=== PATIENT | male | born 1940 | race Caucasian/White ===

== ENCOUNTER 2023-12-23 21:52 | Inpatient (IN) | payer MEDICARE, OTHER, SELFPAY ==
[2023-12-23 16:35] VITALS: BP 143/91
--- NOTE | 2023-12-23 16:37 | ED.GENMED ---
History of Present Illness
General
Chief Complaint: Abdominal Symptoms
Source: patient and ambulance crew
Exam Limitations: none
Time Seen by Provider: 12/23/23 16:35
History of Present Illness
History of Present Illness:
See MDM
Past History
Past History
ED Past Medical History: HTN, Seizures and Other (Glaucoma, seizure in 2016)
ED Past Surgical History: Other (cataract surgery)
Patient has exhibited threatening behavior?: No
PSI?: No
Social History
Tobacco: Non-smoker
Alcohol: None
Drug: None
Personal:
Living: with family
Employment: Retired
Phy Exam
Physical Exam
Physical Exam:
See MDM
Course
Orders/Labs/Results
Orders:
Orders
12/23/23 16:35
CT Abd/pelvis W Iv Cont Urgent
Comment:
Reason For Exam: N/V/D, general abd pain, febrile
0.9% Sodium Chloride 1000 ml [Nss] 1,000 ml IV BOLUS
Acetaminophen [Tylenol] 1,000 mg PO NOW STA
12/23/23 16:36
Electrocardiogram (*1) Urgent
Reason for Study: Abdominal Pain
EKG- Treatment ONCE
CR Chest - 2 Views Urgent
Comment:
Reason For Exam: cough, fever
12/23/23 16:42
COVID-19 Antigen Urgent
Source: Nasal Swab
CPK [Creatine Phosphokinase] Urgent
Complete Blood Count/With Diff Urgent
Comprehensive Metabolic Panel Urgent
Lactic Acid Q4H
Comment: CANCEL 2nd LACTIC ACID IF 1st LACTIC ACID IS LESS THAN 2
Lipase Urgent
Blood Culture Q30M
JAKOB Source: Blood/Venous
Specimen Description:
Influenza A+B Rapid Molecular Urgent
JAKOB Source: Nasal Swab
Specimen Description:
12/23/23 16:46
Blood Culture Q30M
JAKOB Source: Blood/Venous
Specimen Description:
12/23/23 17:05
Urinalysis Reflex To Culture Urgent
Date Specimen was Collected: 12/23/23
Time Specimen was Collected: 17:01
Urine Microscopic Reflex Cult Urgent
12/23/23 18:52
Azithromycin 500 mg/250 ml [Zithromax Infusion] 500 mg in 250 ml IV NOW
CefTRIAXone [Rocephin] 2,000 mg IV NOW STA
12/23/23 19:12
Sterile Water [Sterile Water For Injection] 20 ml .ROUTE .K-MED
Abnormal Lab Results
12/23/23 12/23/23
16:42 17:05
WBC 15.0 H 10^3/uL
(4.8-10.8)
MCV 94.5 H fL
(80.0-94.0)
MCH 31.9 H pg
(27.0-31.0)
RDW 15.0 H %
(11.5-14.5)
Abs Immat Gran (auto) 0.1 H 10^3/uL
(0-0.05)
Absolute Neuts (auto) 13.3 H 10^3/uL
(1.4-6.5)
Absolute Lymphs (auto) 0.2 L 10^3/uL
(1.2-3.4)
Absolute Monos (auto) 1.4 H 10^3/uL
(0.1-0.6)
Neutrophils % 88.7 H %
(42.2-75.2)
Lymphocytes % 1.1 L %
(20.5-51.1)
Glucose 126 H mg/dl
(70-99)
Total Bilirubin 2.2 H mg/dl
(0.2-1.3)
Creatine Kinase 34 L U/L
(55-170)
Lipase 316 H U/L
(23-300)
Urine Ketones 3+ A
(Negative)
Urine Bilirubin 1+ A
(Negative)
Leukocyte Esterase Rfl Trace A
(Negative)
Urine Bacteria (Reflex) Few A
(Negative)
12/23/23 16:42
12/23/23 16:42
Vital Signs
Initial and Last Documented VS:
Initial Vital Signs
Temp Pulse Resp BP Pulse Ox
101.7 F H 103 12 143/91 94
12/23/23 16:35 12/23/23 16:35 12/23/23 16:35 12/23/23 16:35 12/23/23 16:35
Last Documented Vital Signs
Temp Pulse Resp BP Pulse Ox
101.7 F H 107 24 143/91 94
12/23/23 16:35 12/23/23 16:45 12/23/23 16:45 12/23/23 16:38 12/23/23 16:52
MDM/Problems Addressed
Differential Diagnosis Includes:
HPI and MDM Narrative:
83-year-old male presenting by EMS for evaluation of nausea, vomiting, abdominal pain. Per EMS, patient still works outside cleaning pools. We are currently in the midst of a heat wave. EMS started IV fluids and gave Zofran for vomiting. EMS
stating that patient is febrile. Patient complaining of chills
On exam, patient does appear dry. Will start IV fluids. He has mild generalized abdominal pain without rebound. Given age and abdominal pain with fever, will obtain CT. Will also obtain viral testing, urinalysis and chest x-ray
Physical exam
General: weak and fatigued
HEENT: protecting airway. Dry mucous membranes
Neck: supple
CV: No evidence of cyanosis
Resp: No accessory muscle use. Lungs appear clear
Abd: Non-distended. Mild generalized tenderness without rebound
Extremities: No deformities
Neuro: alert
Psych: Normal affect
Skin: Warm
Problems Addressed including Acute and Chronic Conditions affecting care:
1. Fever and abdominal pain
Acuity: acute
Prognosis: stable
Details: Given age and complaint, will obtain CT to rule out infectious versus surgical pathology. Patient given Tylenol
. Will obtain chest x-ray to rule out pneumonia
Updates
CT abdomen/pelvis shows no significant intra-abdominal pathology. Does reference right lower lobe effusion which is likely from pneumonia. Chest x-ray does appear to show pneumonia. Given the fever, leukocytosis and findings, will treat as
community-acquired pneumonia with azithromycin and Rocephin
Differential Diagnosis (but not limited to): Colitis, pancreatitis, acute cholecystitis, pneumonia, viral syndrome
Testing considered: CT with oral contrast but patient is vomiting
Drug therapy (if applicable): OTC meds, please see d/c instruction regarding Rx drugs
Amount and/or Complexity of Data Reviewed
Clinical info obtained from: Patient
External data reviewed: N/A
Labs I independently reviewed (but not limited to): Leukocytosis
Radiology: The CT scan was personally and independently reviewed. In addition, official CT report reviewed.
X-ray independently reviewed: Right lower lobe pneumonia
X-ray independently reviewed: Chest x-ray concerning for right lower lobe pneumonia
Pulse Ox: not hypoxic
EKG independently reviewed: Sinus tachycardia, left axis, no STEMI
Campaign Developer: N/A
Critical Care: N/A
Risk of Complication:
Social Determinants of health: Good social support
Discussed with other providers: Hospitalist
Escalation of Care includes Admit/Obs: given age, fever and pneumonia, will start antibiotics and admit
Occasional wrong word or 'sound a like' substitutions may have occurred due to the inherent limitations of voice recognition software. Read the chart carefully and recognize, using context, where substitutions have occurred.
*Critical Care Note
Total Time (30-74mins, 75-104mins- exclusive of procedures): Not Applicable
ED Attending Note
-
Portions of this chart may have been created with voice recognition software.� Occasional wrong word or��sound alike� substitutions may have occurred due to the inherent limitations of voice recognition software.
Discharge Plan
Departure
Patient Disposition: Admit
Date of Disposition: 12/23/23
Time of Disposition: 20:06
Admit to: Med/Surg
Presentation/result/management discussed w/ accepting MD/DO: Hospitalist
Discharge Problem:
PNA (pneumonia), Heat exhaustion
Prescriptions:
No Action
dorzolamide-timolol 1 DROP drops
1 drp BOTH EYES HS
brimonidine [Alphagan P] 1 DROP drops
1 drp BOTH EYES TID
pilocarpine HCl 4 % drops
2 drp RIGHT EYE TID
pilocarpine HCl 2 % drops
3 drp BOTH EYES TID
acetaminophen 325 mg Tablet
650 mg PO Q4HPRN PRN (Reason: mild pain) Qty: 0 0RF
docusate sodium 100 mg Capsule
100 mg PO BID Qty: 0 0RF
cyanocobalamin (vitamin B-12) 1,000 mcg Tablet
1,000 mcg PO DAILY Qty: 30 0RF
multivitamin with folic acid [Tab-A-Shana] 400 mcg Tablet
1 tab PO DAILY Qty: 30 0RF
levetiracetam 500 MG tablet
500 mg PO BID Qty: 30 0RF
thiamine HCl (vitamin B1) 100 mg Tablet
100 mg PO BID Qty: 30 0RF
folic acid 1 mg Tablet
1 mg PO DAILY Qty: 30 0RF
enoxaparin 40 mg/0.4 mL Syringe
40 mg SC DAILY Qty: 8 0RF
Referrals:
Moreno Erazo DO [Family Provider] -
Interventions
Interventions:
*Risk Screen - Suicide Last Done: 12/23/23 16:52
*General Assessment Last Done: 12/23/23 16:52
*Neglect/Abuse Screening Last Done: 12/23/23 16:52
ED- Fall Risk Assessment Last Done: 12/23/23 16:52
*ED COVID-19 Vaccine History Last Done: 12/23/23 16:52
ZS-[id number]-[id number] Assessment Last Done: 12/23/23 16:52
Discharge Date and Time
Print Language: TUVALUAN
[2023-12-23 16:38] VITALS: BP 143/91
[2023-12-23 16:51] VITALS: BMI 24.7
[2023-12-23 16:58] LABS: % Basophils 0.3 % (0-2); % Eosinophils 0.5 % (0-6); % Immature Granulocytes 0.4 % (0-0.5); % Lymphocytes 1.1 % (20.5-51.1); % Neutrophils 88.7 % (42.2-75.2); Absolute Basophils 0.1 10^3/uL (0-0.2); Absolute Eosinophils 0.1 10^3/uL (0-0.7); Absolute Immature Granulocytes 0.1 10^3/uL (0-0.05); Absolute Lymphocytes 0.2 10^3/uL (1.2-3.4); Absolute Monocytes 1.4 10^3/uL (0.1-0.6); Absolute Neutrophils 13.3 10^3/uL (1.4-6.5); Hematocrit 44.4 % (39.0-52.0); Mean Corp Hgb Conc. 33.8 g/dL (33.0-37.0); Mean Corpuscular Hgb 31.9 pg (27.0-31.0); Mean Corpuscular Volume 94.5 fL (80.0-94.0); Mean Platelet Volume 10.2 fL (7.4-10.4); Nucleated Red Blood Cells % 0 % (-); Platelet Count 192 10^3/uL (130-400)
[2023-12-23 17:04] LABS: Lactic Acid 1.6 mmol/L (0.7-2.0)
[2023-12-23 17:05] LABS: COVID-19 Antigen Negative (Negative)
[2023-12-23 17:13] LABS: Urine Albumin Negative (Neg - Trace); Urine Bilirubin 1+ (Negative); Urine Character Clear (Clear); Urine Color Yellow; Urine Glucose Negative (Negative); Urine Ketone 3+ (Negative); Urine Leukocyte Trace (Negative); Urine Nitrite Negative (Negative); Urine Occult Blood Negative (Negative); Urine Specific Gravity 1.025 (<1.030); Urine Urobilinogen Negative (Neg - 1+)
[2023-12-23] MEDS: TYLENOL 1000 MG PO (17:19)
[2023-12-23 17:21] LABS: Urine Bacteria Few (Negative); Urine Mucus Many; Urine Red Blood Cell 0-2 /HPF (0-2); Urine White Cell 0-2 /HPF (0-5)
[2023-12-23] MEDS: NSS 1000 IV ×2 (17:22→22:23)
[2023-12-23 17:40] LABS: ALT (SGPT) 15 U/L (0-50); AST (SGOT) 22 U/L (17-59); Albumin 4.4 g/dl (3.5-5.0); Alkaline Phosphatase 93 U/L (38-126); Blood Urea Nitrogen 19 mg/dl (9-20); Calcium 8.9 mg/dl (8.4-10.2); Carbon Dioxide 24 mmol/L (22-30); Chloride 105 mmol/L (98-107); Creatine Phosphokinase 34 U/L (55-170); Estimated Creatinine Clearance 71 ml/min; Glucose 126 mg/dl (70-99); Lipase 316 U/L (23-300); Sodium 141 mmol/L (135-145); Total Bilirubin 2.2 mg/dl (0.2-1.3); Total Protein 7.4 g/dl (6.3-8.2); eGFR > 60.00
[2023-12-23] MEDS: ROCEPHIN 2000 MG IV (19:14)
[2023-12-23] MEDS: ZITHROMAX INFUSION 250 IV (19:14)
--- NOTE | 2023-12-23 20:41 | HPS.HSE ---
Family Physician
-
Family Physician: Moreno Erazo
Chief Complaint
-
Vomiting and Fever
History of Present Illness
Patient is an 83-year-old male past medical history of seizure disorder, and alcohol use disorder who presents with vomiting and fever. Additional history provided by emergency room staff. 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
outside in the midst of the current heat wave. Today patient developed nausea and vomiting, and associated fever. Patient denies cough or shortness of breath. He denies chest pains or palpitations. He denies abdominal pain or diarrhea.
Medical History
Past Medical History
Past Medical History: Reports Other
Additional Past Medical History:
Seizure Disorder
Alcohol Use Disorder
Glaucoma
Past Surgical History: Reports Other
Additional Past Surgical History:
Left Hip ORIF
Left Knee Surgery
Cataract Surgery
Social History
Tobacco: Former Smoker (Quit in 2004)
Alcohol: Daily (Patient reports 2-3 glasses of Vodka nightly)
Family History
Family History: Not pertinent
Allergies / Home Medications
Allergies reflects when Allergies were last updated in [facility].
Home Medications with original date entered in [facility]
Allergy/Medication List:
Allergies
Allergy/AdvReac Type Severity Reaction Status Date / Time
No Known Allergies Allergy Verified 06/26/22 20:29
Home Medications
brimonidine 0.15 % eye drops (Alphagan P) 1 drp BOTH EYES TID Eye condition 04/19/17
dorzolamide 22.3 mg-timolol 6.8 mg/mL eye drops 1 drp BOTH EYES HS Eye condition 04/19/17
pilocarpine HCl 2 % eye drops 3 drp BOTH EYES TID Eye condition 06/26/22
pilocarpine HCl 4 % eye drops 2 drp RIGHT EYE TID Eye condition 06/26/22
acetaminophen 325 mg tablet 650 mg (2 x 325 mg) PO Q4HPRN PRN mild pain #0 tabs 06/29/22
docusate sodium 100 mg capsule 100 mg PO BID #0 caps 06/29/22
cyanocobalamin (vitamin B-12) 1,000 mcg tablet 1,000 mcg PO DAILY #30 tabs 07/12/22
multivitamin with folic acid 400 mcg tablet (Tab-A-Shana) 1 tab PO DAILY #30 tabs 07/12/22
folic acid 1 mg tablet 1 mg PO DAILY #30 tabs 07/13/22
levetiracetam 500 mg tablet 500 mg PO BID Neurological Condition #30 tabs 07/13/22
thiamine HCl (vitamin B1) 100 mg tablet 100 mg PO BID #30 tabs 07/13/22
Review of Systems
-
A 12 point ROS was completed and negative except as noted: Yes
Constitutional: Reports Fever
Respiratory: Denies Cough or Trouble Breathing
Cardiac: Denies Chest Pain or Palpitations
Abdomen/GI: Reports Vomiting and Diarrhea
Physical Exam
Vital Signs
Vital Signs
Temp Pulse Resp BP Pulse Ox
101.7 F H 97 17 143/91 94
12/23/23 16:35 12/23/23 20:30 12/23/23 20:30 12/23/23 16:38 12/23/23 20:30
Physical Exam
General: Comfortable and Conversant
HEENT: Anicteric and Moist mucous membranes
Respiratory: Rhonchi (Diffuse more prominent in right lower lobe region) and Non Labored Respirations
Cardiac: S1/S2 and Regular Rhythm
GI: Soft and Non Tender
Musculoskeletal: No Clubbing, No Cyanosis and No Edema
Skin: Warm and Dry
Neuro: Awake, Alert, Oriented and Nonfocal/grossly intact
Psych: Calm
Laboratory Results
-
12/23/23 16:42
12/23/23 16:42
Laboratory Results
Lactic Acid Cancelled 12/23/23 20:45
Total Bilirubin 2.2 mg/dl (0.2-1.3) H 12/23/23 16:42
AST 22 U/L (17-59) 12/23/23 16:42
ALT 15 U/L (0-50) 12/23/23 16:42
Alkaline Phosphatase 93 U/L (38-126) 12/23/23 16:42
Lipase 316 U/L (23-300) H 12/23/23 16:42
Data Reviewed
-
Diagnostic Radiology: Report Reviewed by me
CT Scan: Report Reviewed by me
Lab Data: Labs Reviewed by me
Impression/Plan
-
SIRS secondary to Heat Exhaustion complicated by Aspiration Pneumonia
-Continue IVFs
-Continue Rocephin and Doxycycline
-Monitor temperature closely
Seizure Disorder
-Continue Keppra
Alcohol Use Disorder
-Continue thiamine and folic acid
-Continue alcohol withdrawal protocol
DVT proph: Lovenox
Code Status: Full Code
--- NOTE | 2023-12-23 20:45 | W.PN.UPDATE ---
Update Note
Progress Note Update
This note serves as an addendum to the H&P by route delivery service driver KIKA Patrizia GEE
HPI
83M HX Sz, ETOH use disorder, HTN, daily ETOH/ 16 oz Vodka daily with dinner seen at ER for evalauation of acute fever, acute vomiting today. dened hemetemis and meklena. Reports subacute non bloody loose BMs for 4 weeks .
He works outdoor for pool maintenance
Denied feverish, cough and chills.
Denied myalgia and arthralgia,
VSS: T 101.7 tachycardia normotensive POx 94
PE
Gen: non toxic , conversant
HEENT: moist OM
Neck: supple
Lungs: symmetric AE, Rt base ? bronchial BS
Cor: RRR ST S1 S2
Abdomen: soft BS
ACCOUNTING OFFICE MANAGER: NFND
MS: no edema
Psych: appropiate
Data
Leucocytosis , unremarkable BMP , TB 2.2 and CK 34, lipase 316Unremarkable UA
NEG Covid
CXR:
Small loculated right pleural effusion with associated right lower lobe airspace disease/pneumonia.
CT AP W Iv Cont
1. No significant acute abnormality identified in the abdomen or pelvis, as described above.
2. Cholelithiasis.
3. Small right pleural effusion, likely partially loculated and adjacent right lower lobe pleural-based consolidation which may reflect combination of rounded atelectasis and pneumonia.
4. Small hiatal hernia and evidence for gastroesophageal reflux.
ASSESSMENT & PLAN
Pending Rx reconciliation
Suspect exertional heat illness - heat exhaustion with vomiting: Unremarkable CKS, nl RFTs, no hematuria
Current SIRS picture is likely due to heat exhaustion
CXR suggest Right lower lobe airspace disease/pneumonia is possible due to aspiration
Leucocytosis
ETOH use disorder: at risk for ETOH WD
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
- IV NS 100/H
- Empiric IV CFTX and PO doxy while pending PCT
- CIWA protocol
- cont Keppra
- Trend CBC and CMP daily
DVT Px: LMWH
Code: Fulll
IP TLM
[2023-12-23 21:00] VITALS: BP 97/62
[2023-12-23 21:25] LABS: Procalcitonin 1.39 ng/ml (0.0-0.25)
--- NOTE | 2023-12-23 22:15 | PTCARENOTE ---
Patient arrived to unit accompanied by ED PCT, ambulated to bathroom and bed with x1 assist. RW given for furniture grabbing. Nursing assessment completed and as documented. Patient oriented to room/facility, instructed use of call guevara and within
reach, VSS, continue with current care plan.
[2023-12-23] MEDS: KEPPRA 500 MG PO (22:23)
[2023-12-23 22:34] VITALS: BMI 24.4
[2023-12-23 22:37] VITALS: BP 137/75; BMI 24.4
[2023-12-23 23:17] VITALS: BP 102/76
[2023-12-24] VITALS (9 sets, daily range): BP systolic 123–141; BP diastolic 62–83; PULSE 98–150; O2SAT 93
--- NOTE | 2023-12-24 01:15 | PTCARENOTE ---
Patient c/o nausea, House DINING CAR SERVER notified and order placed for 4mg IV Zofran x1, see MAR for administration.
[2023-12-24] MEDS: ZOFRAN 4 MG IV (01:16)
--- NOTE | 2023-12-24 02:15 | PTCARENOTE ---
Patient vomited large amount of coffee ground emesis in room, patient felt relief of nausea following episode. Patient with loose, large, brown BM in toilet, unable to heme test. RODENT CONTROL WORKER made aware, order placed for NPO, IV protonix and GI C/S. VSS,
call guevara within reach, care ongoing.
--- NOTE | 2023-12-24 02:46 | W.PN.UPDATE ---
Update Note
Progress Note Update
pt admitted with n/v heat exhaustion
RN reports pt vomited coffee ground like emesis followed by BM that did not appear black or bloody (unable to heme test as it was in toilet).
Will make pt NPO
Add protonix gtt ad ask GI to see pt.
Pt does have hx of ETOH abuse
[2023-12-24] MEDS: PROTONIX 100 IV ×2 (03:25→13:27)
[2023-12-24] MEDS: ATIVAN 1 MG PO ×3 (05:38→09:44)
[2023-12-24] MEDS: NSS (PRESERVATIVE FREE) 0.5 ML IV (06:09)
[2023-12-24] MEDS: ATIVAN 1 MG IV (06:09)
[2023-12-24] MEDS: NSS 1000 IV ×2 (07:40→19:53)
[2023-12-24] MEDS: THIAMINE INJECTION 200 MG IV ×2 (07:42→20:05)
[2023-12-24] MEDS: VIBRAMYCIN 100 MG PO ×2 (07:42→20:07)
[2023-12-24] MEDS: FOLVITE 1 MG PO (07:42)
[2023-12-24 07:45] LABS: Hematocrit 38.4 % (39.0-52.0); Mean Corp Hgb Conc. 33.9 g/dL (33.0-37.0); Mean Corpuscular Hgb 31.9 pg (27.0-31.0); Mean Corpuscular Volume 94.3 fL (80.0-94.0); Mean Platelet Volume 10.3 fL (7.4-10.4); Platelet Count 155 10^3/uL (130-400); Red Blood Cell Count 4.07 10^6/uL (4.70-6.10); Red Cell Dist. Width 15.2 % (11.5-14.5); White Blood Cell Count 9.5 10^3/uL (4.8-10.8)
--- NOTE | 2023-12-24 07:58 | CON.GI ---
Consultation
-
Date/Time Consultation Performed: 12/24/23
Performing Provider: Acosta Stokes MD
Reason for Consultation: coffee ground emesis
Medical History
Chief Complaint / HPI
Chief Complaint: fever, vomiting, diarrhea
History of Present Illness:
The patient is an 83-year-old male with past medical history as noted presents with fever and abdominal pain. He states that yesterday he started to have vomiting with associated abdominal pain which she describes as diffuse. He states that for
the past week he has been having intermittent diarrhea which has been nonbloody. He does not recall seeing any blood in his emesis, though by report had an episode of coffee-ground emesis yesterday. He denies any cough. He had a colonoscopy in
the which was unremarkable by report and usually does not have any GI symptoms and does not follow-up with a public relations assistant. He does drink alcohol daily. He denies any recent sick contacts or antibiotics.
Past Medical History
Past Medical History: Other (Seizure disorder Glaucoma Alcohol use disorder)
Past Surgical History: None
Social History
Tobacco: Non-Smoker
Alcohol: Daily
Family History
Family History: Reviewed & Not Pertinent
Allergies / Home Medications
Allergy/AdvReac Type Severity Reaction Status Date / Time
No Known Allergies Allergy Verified 06/26/22 20:29
�Medication �Instructions �Recorded
brimonidine 0.15 % eye drops 1 drp BOTH EYES TID Eye condition 04/19/17
(Alphagan P)
dorzolamide 22.3 mg-timolol 6.8 1 drp BOTH EYES HS Eye condition 04/19/17
mg/mL eye drops
pilocarpine HCl 2 % eye drops 3 drp BOTH EYES TID Eye condition 06/26/22
pilocarpine HCl 4 % eye drops 2 drp RIGHT EYE TID Eye condition 06/26/22
acetaminophen 325 mg tablet 650 mg (2 x 325 mg) PO Q4HPRN PRN 06/29/22
mild pain #0 tabs
docusate sodium 100 mg capsule 100 mg PO BID #0 caps 06/29/22
cyanocobalamin (vitamin B-12) 1,000 mcg PO DAILY #30 tabs 07/12/22
1,000 mcg tablet
multivitamin with folic acid 400 1 tab PO DAILY #30 tabs 07/12/22
mcg tablet (Tab-A-Shana)
folic acid 1 mg tablet 1 mg PO DAILY #30 tabs 07/13/22
levetiracetam 500 mg tablet 500 mg PO BID Neurological 07/13/22
Condition #30 tabs
thiamine HCl (vitamin B1) 100 mg 100 mg PO BID #30 tabs 07/13/22
tablet
Review of Systems
-
All other systems: A 12 pt ROS was Negative except as stated above in HPI
Vital Signs
Temp Pulse Resp BP Pulse Ox
98.9 F 101 21 138/82 94
12/24/23 07:55 12/24/23 07:55 12/24/23 07:55 12/24/23 07:55 12/24/23 07:55
Physical Exam
Exam
General: NAD
HEENT: MMM, anicteric, no lymphadenopathy
Heart: Regular, no murmurs
Lungs: CTA bilaterally
Abdomen: normal bowel sounds, soft, no tenderness, no rebound or guarding, no masses, bruits or ascites
Extremeties: no edema
Skin: no rashes
Results
WBC 9.5 10^3/uL (4.8-10.8) 12/24/23 07:32
Hgb 13.0 g/dL (13.0-18.0) 12/24/23 07:32
Hct 38.4 % (39.0-52.0) L 12/24/23 07:32
MCV 94.3 fL (80.0-94.0) H 12/24/23 07:32
Plt Count 155 10^3/uL (130-400) 12/24/23 07:32
Absolute Neuts (auto) 13.3 10^3/uL (1.4-6.5) H 12/23/23 16:42
Sodium 141 mmol/L (135-145) 12/23/23 16:42
Potassium 4.0 mmol/L (3.5-5.1) 12/23/23 16:42
Chloride 105 mmol/L (98-107) 12/23/23 16:42
Carbon Dioxide 24 mmol/L (22-30) 12/23/23 16:42
BUN 19 mg/dl (9-20) 12/23/23 16:42
Creatinine 0.7 mg/dL (0.7-1.3) 12/23/23 16:42
Calcium 8.9 mg/dl (8.4-10.2) 12/23/23 16:42
Total Bilirubin 2.2 mg/dl (0.2-1.3) H 12/23/23 16:42
AST 22 U/L (17-59) 12/23/23 16:42
ALT 15 U/L (0-50) 12/23/23 16:42
Alkaline Phosphatase 93 U/L (38-126) 12/23/23 16:42
Lipase 316 U/L (23-300) H 12/23/23 16:42
Diagnostic Image Results:
CT:
1. No significant acute abnormality identified in the abdomen or pelvis, as described above.
2. Cholelithiasis.
3. Small right pleural effusion, likely partially loculated and adjacent right lower lobe pleural-based consolidation which may reflect combination of rounded atelectasis and pneumonia.
4. Small hiatal hernia and evidence for gastroesophageal reflux.
CXR:
IMPRESSION:
Small loculated right pleural effusion with associated right lower lobe airspace disease/pneumonia.
Prior GI Procedures:
EGD:
Colonoscopy:
Assessment / Plan
-
1. Vomiting/coffee ground emesis/diarrhea: Initially with intermittent diarrhea over the past week, then with vomiting yesterday, more consistent with infectious gastroenteritis. CT scan was unremarkable for other significant pathology. He did
have a fever on presentation yesterday with leukocytosis, possibly more related to pneumonia given chest x-ray, now with resolved leukocytosis and remains afebrile. His abdominal exam is benign now and overall feeling better. His coffee-ground
emesis is likely either related to esophagitis or [employer] tear, without gross bleeding at first, with normal hemoglobin and no signs of significant gross bleeding. CT scan did show hiatal hernia with fluid-filled esophagus yesterday, though
no suggestion of mass or other pathology. At this point we will start clear liquid diet, continue supportive care, on antibiotics for pneumonia. If has further diarrhea we will check stool studies. Will continue PPI and observation for now though
we will hold on endoscopy pending clinical course.
-
-
Thank you for consultation and allowing me to participate in the patient's care. Please call the homemaker companion GI physician during the after hours with any questions or concerns.
[2023-12-24 08:18] LABS: ALT (SGPT) 12 U/L (0-50); AST (SGOT) 19 U/L (17-59); Albumin 3.6 g/dl (3.5-5.0); Alkaline Phosphatase 63 U/L (38-126); Blood Urea Nitrogen 17 mg/dl (9-20); Calcium 8.1 mg/dl (8.4-10.2); Carbon Dioxide 24 mmol/L (22-30); Chloride 109 mmol/L (98-107); Estimated Creatinine Clearance 71 ml/min; Glucose 117 mg/dl (70-99); Magnesium 1.7 mg/dl (1.6-2.3); Potassium 3.7 mmol/L (3.5-5.1); Sodium 142 mmol/L (135-145); Total Bilirubin 1.7 mg/dl (0.2-1.3); Total Protein 6.2 g/dl (6.3-8.2); eGFR > 60.00
[2023-12-24] MEDS: KEPPRA 500 MG IV ×2 (09:24→20:07)
--- NOTE | 2023-12-24 10:58 | W.PN.HOSP.TC ---
Today's Communication/Plan
-
IV antibiotics and monitoring clear diet
Home med rec pending
IV Keppra
IV fluids
Assessment / Plan
Assessment / Plan
Sepsis 2/2 Aspiration Pneumonia likely complication due to heat exhaustion
-Continue IVFs
-Continue Rocephin and Doxycycline
-Monitor temperature closely. Influenza negative. COVID-negative.
-Blood cultures in lab.
-Procal elevated 1.39
Nausea/vomiting and diarrhea likley 2/2 ? gastroenteritis
Coffee ground emesis likely 2/2 esophagitis vs. amando jean baptiste tear
-Clears for now
-Diet per GI
-ppi
-IVF for now
-GI recs.
Seizure Disorder
-Continue Keppra (home med pending-however on 500mg bid in the past and resumed)
Alcohol Use Disorder
-Continue thiamine and folic acid
-Continue alcohol withdrawal protocol
DVT proph: Lovenox
Code Status: Full Code
Med Rec pending
PT/OT
Anticipated Discharge: > 48 hours
Subjective/Interval History
-
Date of Service: December 24, 2023
states improvement in abd pain
Objective Data
-
Labs:
Laboratory Results
12/24/23
07:32
WBC 9.5
Hgb 13.0
Hct 38.4 L
Plt Count 155
Sodium 142
Potassium 3.7
Chloride 109 H
Carbon Dioxide 24
BUN 17
Creatinine 0.7
Glucose 117 H
Calcium 8.1 L
Total Bilirubin 1.7 H
AST 19
ALT 12
Alkaline Phosphatase 63
Vital Signs:
Vital Signs
Temp Pulse Resp BP Pulse Ox
99.9 F 101 21 138/82 94
12/24/23 09:32 12/24/23 09:32 12/24/23 07:55 12/24/23 07:55 12/24/23 07:55
Physical Exam
-
General: Well Developed, Well Nourished and No Apparent Distress
HEENT: Normocephalic and Atraumatic
Respiratory: Clear to Auscultation; Negative Wheezes or Rhonchi
Cardiac: Regular Rhythm and S1/S2; Negative Murmur
GI: Soft, Nontender, Nondistended and Normal Bowel Sounds
Musculoskeletal: No Clubbing, No Cyanosis and No Edema
Skin: Warm
Neuro: Awake and No Motor Deficits
Psych: Calm
Data Reviewed
-
Total Time Spent with Patient (in minutes): 55
--- NOTE | 2023-12-24 11:57 | CM ---
Addendum entered by Jasmin Paris 12/24/23 15:57:
CM met with patient bedside, discussed PT recommendations of SNF. Patient would like to return home, is not agreeable at this time to SNF. CM discussed consult for alcohol use, offered resources, patient not interested in [facility] or resources at this
time.
Original Note:
Patient seen bedside asleep, daughter Martha ([phone]) present, initial assessment completed by daughter. Per Martha, patient is still working, owns a [employer]. Patient lives alone in a one story condo, one step to enter,
has a cane and walker if needed but typically does not use any device. Patients daughter checks on father daily. Patient has had VN in past after [facility]. Patient PCP Dr. Erazo, pharmacy [facility]. Daughter reports patient cooks for
himself, showers himself. CM discussed PT recommendation of SNF. Daughter reports the goal would be for patient to return home, would like to see how patient does in therapy once he is able to eat something. CM will continue to follow for all
discharge planning needs.
Plan; will return to discuss SNF with patient once patient is awake.
[2023-12-24] MEDS: PILOCARPINE 4% 2 DROP RIGHT EYE (15:27)
[2023-12-24] MEDS: ALPHAGAN P 0.15% EYE DROPS 1 DROP BOTH EYES ×2 (15:27→23:15)
[2023-12-24] MEDS: ISOPTO CARPINE 2% EYE DROPS 3 DROP BOTH EYES (15:27)
--- NOTE | 2023-12-24 16:14 | PTCARENOTE ---
pt transferred form 415-2. pt [id number]. pt states no pain. slight tremors felt. nsr seen on monitor. ivf and protonix running as ordered. breath sounds clear.
[2023-12-24] MEDS: LOVENOX 40 MG SC (17:43)
[2023-12-24] MEDS: STERILE WATER FOR INJECTION 10 ML IV (20:05)
[2023-12-24] MEDS: ROCEPHIN 1000 MG IV (20:05)
[2023-12-24] MEDS: ISOPTO CARPINE 2% EYE DROPS 1 DROP BOTH EYES (23:15)
[2023-12-24] MEDS: COSOPT EYE DROPS 1 DROP BOTH EYES (23:15)
[2023-12-24] MEDS: PILOCARPINE 4% 1 DROP RIGHT EYE (23:16)
[2023-12-25] MEDS: PROTONIX 100 IV ×2 (01:38→21:08)
[2023-12-25 03:10] VITALS: BP 144/78
[2023-12-25 06:00] VITALS: BMI 25.1
[2023-12-25 07:00] VITALS: BP 149/94
--- NOTE | 2023-12-25 08:01 | W.PN.GI.CBS2 ---
Today's Communication / Plan
-
Please see assessment plan for details.
Assessment / Plan
-
1. Vomiting/coffee ground emesis/diarrhea: Initially with intermittent diarrhea over the past week, then with vomiting yesterday, more consistent with infectious gastroenteritis with possible Ivana-Davidson tear, also with pneumonia. Stool studies
negative so far, no signs of significant bleeding. At this point will advance diet, await final stool studies and repeat labs, continue supportive care.
Subjective
Subjective
Date of Service: December 25, 2023
Patient feeling okay, still some mild diarrhea, though improved, no melena, no vomiting, no fevers or chills.
Objective
Data Reviewed
Laboratory Data:
Laboratory Results
12/24/23 07:32
12/24/23 07:32
Laboratory Results
Magnesium 1.7 mg/dl (1.6-2.3) 12/24/23 07:32
Total Bilirubin 1.7 mg/dl (0.2-1.3) H 12/24/23 07:32
AST 19 U/L (17-59) 12/24/23 07:32
ALT 12 U/L (0-50) 12/24/23 07:32
Alkaline Phosphatase 63 U/L (38-126) 12/24/23 07:32
Lipase 316 U/L (23-300) H 12/23/23 16:42
Vital Signs and I&O:
Vital Signs
Temp Pulse Resp BP Pulse Ox
98.1 F 64 18 144/78 97
12/25/23 03:10 12/25/23 03:10 12/25/23 03:10 12/25/23 03:10 12/25/23 03:10
I&O
12/24/23 12/25/23 12/26/23
06:59 06:59 06:59
Intake Total 1080 / 1080 1400 / 1400
Output Total 250 / 250
Balance 830 / 830 1400 / 1400
Physical Exam
Physical Exam
General: NAD
Abdomen: normal bowel sounds, soft, no tenderness, no masses or bruits, no ascites
[2023-12-25] MEDS: THIAMINE INJECTION 200 MG IV ×2 (08:08→21:01)
[2023-12-25] MEDS: KEPPRA 500 MG IV (08:09)
[2023-12-25] MEDS: VIBRAMYCIN 100 MG PO ×2 (08:09→21:01)
[2023-12-25] MEDS: FOLVITE 1 MG PO (08:10)
[2023-12-25] MEDS: VITAMIN B-12 1000 MCG PO (08:10)
[2023-12-25] MEDS: ALPHAGAN P 0.15% EYE DROPS 1 DROP BOTH EYES ×3 (08:16→21:09)
[2023-12-25] MEDS: PILOCARPINE 4% 2 DROP RIGHT EYE ×3 (08:17→21:10)
[2023-12-25] MEDS: ISOPTO CARPINE 2% EYE DROPS 3 DROP BOTH EYES ×2 (08:17→21:09)
[2023-12-25 08:32] LABS: Hematocrit 35.3 % (39.0-52.0); Hemoglobin 11.9 g/dL (13.0-18.0); Mean Corp Hgb Conc. 33.7 g/dL (33.0-37.0); Mean Corpuscular Hgb 32.1 pg (27.0-31.0); Mean Corpuscular Volume 95.1 fL (80.0-94.0); Mean Platelet Volume 10.5 fL (7.4-10.4); Platelet Count 142 10^3/uL (130-400); Red Blood Cell Count 3.71 10^6/uL (4.70-6.10); Red Cell Dist. Width 15.3 % (11.5-14.5); White Blood Cell Count 5.5 10^3/uL (4.8-10.8)
[2023-12-25 09:05] LABS: Blood Urea Nitrogen 10 mg/dl (9-20); Carbon Dioxide 24 mmol/L (22-30); Chloride 108 mmol/L (98-107); Estimated Creatinine Clearance 83 ml/min; Glucose 84 mg/dl (70-99); Potassium 3.3 mmol/L (3.5-5.1); Sodium 138 mmol/L (135-145); eGFR > 60.00
[2023-12-25] MEDS: NSS 1000 IV (11:05)
[2023-12-25 11:16] VITALS: BP 110/59
--- NOTE | 2023-12-25 12:37 | W.PN.HOSP.TC ---
Today's Communication/Plan
-
Monitor vital signs and see plan
PT/OT
Continue with antibiotics
Continue to monitor bowel movements
Daughter updated at bedside
Assessment / Plan
Assessment / Plan
Sepsis 2/2 Aspiration Pneumonia likely complication due to N/V
hx of smoking
hx of pleural effusion
will need CXR in 4 weeks to ensure resolution
atelectasis; cw IS
-Continue Rocephin and Doxycycline
Influenza negative. COVID-negative.
-Blood cultures NGTD
-Procal elevated 1.39
Nausea/vomiting and diarrhea likely 2/2 ? gastroenteritis
Coffee ground emesis likely 2/2 esophagitis vs. amando jean baptiste tear
GI following; now on LRD
stool studies so far neg
appears symptoms improving
Seizure Disorder
-Continue Keppra; change to PO
Alcohol Use Disorder
-Continue thiamine and folic acid
-Continue alcohol withdrawal protocol
DVT proph: Lovenox
Code Status: Full Code
PT/OT rec SNF
General: Well Developed, Well Nourished and No Apparent Distress
HEENT: Normocephalic and Atraumatic
Respiratory: Clear to Auscultation; Negative Wheezes or Rhonchi
Cardiac: Regular Rhythm and S1/S2; Negative Murmur
GI: Soft, Nontender, Nondistended and Normal Bowel Sounds
Musculoskeletal: No Clubbing, No Cyanosis and No Edema
Skin: Warm
Neuro: Awake and No Motor Deficits
Psych: Calm
Anticipated Discharge: 24 - 48 hours
Subjective/Interval History
-
Date of Service: December 25, 2023
denies abdominal pain
Objective Data
-
Labs:
Laboratory Results
12/25/23
08:13
WBC 5.5
Hgb 11.9 L
Hct 35.3 L
Plt Count 142
Sodium 138
Potassium 3.3 L
Chloride 108 H
Carbon Dioxide 24
BUN 10
Creatinine 0.6 L
Glucose 84
Calcium 8.0 L
Vital Signs:
Vital Signs
Temp Pulse Resp BP Pulse Ox
97.5 F 60 16 110/59 95
12/25/23 11:16 12/25/23 11:16 12/25/23 11:16 12/25/23 11:16 12/25/23 11:16
I&O
12/24/23 12/25/23 12/26/23
06:59 06:59 06:59
Intake Total 1080 / 1080 1400 / 1400
Output Total 250 / 250
Balance 830 / 830 1400 / 1400
[2023-12-25] MEDS: KCL 20 MEQ PO (13:09)
[2023-12-25 15:00] VITALS: BP 147/87
--- NOTE | 2023-12-25 15:18 | CM ---
CM reviewed chart and met with pt bedside
SNF recommended by therapy
Pt declined both SNF and VN
Noted he will do his own therapy at home
Gave permission for update to be provided to his dtr
VM left with dtr/Vikki with update
Requested return call if she has concerns regarding dc planning
Discharge Disposition- home- pt declined both SNF and VN
[2023-12-25] MEDS: ISOPTO CARPINE 2% EYE DROPS 1 DROP BOTH EYES (17:02)
[2023-12-25] MEDS: LOVENOX 40 MG SC (17:06)
[2023-12-25 19:10] VITALS: BP 157/71
[2023-12-25] MEDS: KEPPRA 500 MG PO (21:00)
[2023-12-25] MEDS: ROCEPHIN 1000 MG IV (21:01)
[2023-12-25] MEDS: STERILE WATER FOR INJECTION 10 ML IV (21:01)
[2023-12-25] MEDS: PROTONIX IV (21:08)
[2023-12-25] MEDS: COSOPT EYE DROPS 1 DROP BOTH EYES (21:09)
[2023-12-25 23:20] VITALS: BP 138/78
[2023-12-26] MEDS: NSS 1000 IV (03:03)
[2023-12-26 03:10] VITALS: BP 107/74
[2023-12-26 05:16] VITALS: BMI 25.1
[2023-12-26] MEDS: PROTONIX 100 IV (06:48)
[2023-12-26 07:00] VITALS: BP 130/84
--- NOTE | 2023-12-26 07:22 | W.PN.GI.CBS2 ---
Today's Communication / Plan
-
Please see assessment and plan for details.
Assessment / Plan
-
1. Vomiting/coffee ground emesis/diarrhea: Initially with intermittent diarrhea over the past week, then with vomiting yesterday, more consistent with infectious gastroenteritis with possible Ivana-Davidson tear, also with pneumonia. Stool studies
negative so far, no signs of significant bleeding. He is tolerating diet without difficulty and feeling much better. If this morning labs are okay then we will sign off, please call back with any further questions.
Subjective
Subjective
Date of Service: December 26, 2023
Patient feeling better overall, tolerating diet without difficulty, no vomiting, abdominal pain or diarrhea.
Objective
Data Reviewed
Laboratory Data:
Laboratory Results
Magnesium 1.7 mg/dl (1.6-2.3) 12/24/23 07:32
Total Bilirubin 1.7 mg/dl (0.2-1.3) H 12/24/23 07:32
AST 19 U/L (17-59) 12/24/23 07:32
ALT 12 U/L (0-50) 12/24/23 07:32
Alkaline Phosphatase 63 U/L (38-126) 12/24/23 07:32
Lipase 316 U/L (23-300) H 12/23/23 16:42
Vital Signs and I&O:
Vital Signs
Temp Pulse Resp BP Pulse Ox
97.9 F 85 14 107/74 98
12/26/23 03:10 12/26/23 03:10 12/26/23 03:10 12/26/23 03:10 12/26/23 03:10
I&O
12/25/23 12/26/23 12/27/23
06:59 06:59 06:59
Intake Total 1080 / 1080 2600 / 2600 1560 / 1560
Output Total 250 / 250 300 / 300
Balance 830 / 830 2600 / 2600 1260 / 1260
Physical Exam
Physical Exam
General: NAD
Abdomen: normal bowel sounds, soft, no tenderness, no masses or bruits, no ascites
[2023-12-26 07:36] LABS: % Basophils 0.8 % (0-2); % Eosinophils 4.5 % (0-6); % Immature Granulocytes 0.4 % (0-0.5); % Lymphocytes 13.5 % (20.5-51.1); % Monocytes 15.7 % (1.7-9.3); % Neutrophils 65.1 % (42.2-75.2); Absolute Eosinophils 0.2 10^3/uL (0-0.7); Absolute Lymphocytes 0.7 10^3/uL (1.2-3.4); Absolute Monocytes 0.8 10^3/uL (0.1-0.6); Absolute Neutrophils 3.3 10^3/uL (1.4-6.5); Hematocrit 33.7 % (39.0-52.0); Hemoglobin 11.2 g/dL (13.0-18.0); Mean Corp Hgb Conc. 33.2 g/dL (33.0-37.0); Mean Corpuscular Volume 96.3 fL (80.0-94.0); Mean Platelet Volume 10.9 fL (7.4-10.4); Nucleated Red Blood Cells % 0 % (-); Platelet Count 144 10^3/uL (130-400); White Blood Cell Count 5.1 10^3/uL (4.8-10.8)
[2023-12-26 08:03] VITALS: BP 130/84
[2023-12-26] MEDS: ALPHAGAN P 0.15% EYE DROPS 1 DROP BOTH EYES (08:09)
[2023-12-26] MEDS: PILOCARPINE 4% 2 DROP RIGHT EYE (08:09)
[2023-12-26] MEDS: ISOPTO CARPINE 2% EYE DROPS 3 DROP BOTH EYES (08:10)
[2023-12-26] MEDS: FOLVITE 1 MG PO (08:10)
[2023-12-26] MEDS: KEPPRA 500 MG PO (08:10)
[2023-12-26] MEDS: THIAMINE INJECTION 200 MG IV (08:10)
[2023-12-26 08:11] LABS: Blood Urea Nitrogen 9 mg/dl (9-20); Calcium 7.7 mg/dl (8.4-10.2); Carbon Dioxide 26 mmol/L (22-30); Chloride 107 mmol/L (98-107); Estimated Creatinine Clearance 83 ml/min; Glucose 81 mg/dl (70-99); Potassium 3.2 mmol/L (3.5-5.1); Sodium 138 mmol/L (135-145); eGFR > 60.00
[2023-12-26] MEDS: VIBRAMYCIN 100 MG PO (08:11)
[2023-12-26] MEDS: VITAMIN B-12 1000 MCG PO (08:11)
--- NOTE | 2023-12-26 10:09 | W.PN.HOSP.TC ---
Today's Communication/Plan
-
Monitor vital signs
see plan
Replete potassium
Change antibiotics to oral on discharge
Patient does not want any physical therapy evaluation and demanding to be discharged
Daughter is aware that he would need repeat chest x-ray to ensure resolution
Time of Discharge 38 minutes
Assessment / Plan
Assessment / Plan
Sepsis 2/2 Aspiration Pneumonia likely complication due to N/V
hx of smoking
hx of pleural effusion
will need CXR in 4 weeks to ensure resolution
atelectasis; cw IS
-Continue Rocephin and Doxycycline; change to PO today and dc
Influenza negative. COVID-negative.
-Blood cultures NGTD
-Procal elevated 1.39
Nausea/vomiting and diarrhea likely 2/2 ? gastroenteritis
Coffee ground emesis likely 2/2 esophagitis vs. amando jean baptiste tear
upon imaging with small effusion; patient is feeling better,not interested in any thora. denies sob
GI following; now on LRD
stool studies so far neg
appears symptoms improving
change ppi to PO
Hypokalemia
replete
Seizure Disorder
-Continue Keppra; changed to PO
Alcohol Use Disorder
-Continue thiamine and folic acid
-Continue alcohol withdrawal protocol; last MSAS 0
DVT proph: Lovenox
Code Status: Full Code
PT/OT rec SNF
General: Well Developed, Well Nourished and No Apparent Distress
HEENT: Normocephalic and Atraumatic
Respiratory: Clear to Auscultation; Negative Wheezes or Rhonchi
Cardiac: Regular Rhythm and S1/S2; Negative Murmur
GI: Soft, Nontender, Nondistended and Normal Bowel Sounds
Musculoskeletal: No Clubbing, No Cyanosis and No Edema
Skin: Warm
Neuro: Awake and No Motor Deficits
Psych: Calm
Anticipated Discharge: Today
Subjective/Interval History
-
Date of Service: December 26, 2023
denies pain
Objective Data
-
Labs:
Laboratory Results
12/26/23
06:31
WBC 5.1
Hgb 11.2 L
Hct 33.7 L
Plt Count 144
Sodium 138
Potassium 3.2 L
Chloride 107
Carbon Dioxide 26
BUN 9
Creatinine 0.6 L
Glucose 81
Calcium 7.7 L
Vital Signs:
Vital Signs
Temp Pulse Resp BP Pulse Ox
98.4 F 63 16 130/84 95
12/26/23 07:00 12/26/23 07:00 12/26/23 07:00 12/26/23 07:00 12/26/23 07:00
I&O
12/25/23 12/26/23 12/27/23
06:59 06:59 06:59
Intake Total 1080 / 1080 2600 / 2600 1560 / 1560
Output Total 250 / 250 300 / 300
Balance 830 / 830 2600 / 2600 1260 / 1260
[2023-12-26] MEDS: KCL 40 MEQ PO (10:18)
[2023-12-26] MEDS: PROTONIX 40 MG PO (10:18)
--- NOTE | 2023-12-26 10:40 | CM ---
Patient seen at bedside with daughter Martha. Patient was seen by therapy on 12/23 and recommended SNF. Patient and patient daughter indicated that he was refusing stating that he is able to walk with or without the walker. Per physician note patient
is refusing pt and demanding discharge. Patient is not home bound and is working, family to follow up with PCP. CM reviewed IMM and placed form on chart. CM will continue to follow for discharge planning needs.
Plan; home with no needs.
--- NOTE | 2023-12-26 10:49 | W.DCSUMMARY ---
Discharge Summary
Discharge Data
Date of Admission: 12/23/23
Date of Discharge: 12/26/23
-
Pending Results: No
Hospital Course
83-year-old male with past medical history of seizure disorder, alcohol use came to the hospital with sepsis secondary to suspected aspiration pneumonia given recent nausea and vomiting. Patient was initially started on IV antibiotic which was
later transitioned to oral antibiotics prior to discharge. His procalcitonin was elevated on this hospitalization. Upon imaging it showed small effusion however patient started to improve on antibiotics and did not wanted any further intervention
like thoracentesis. On discharge he was instructed to get repeat chest x-ray to ensure resolution. I did talk to his daughter to ensure that he will get repeat imaging outpatient. For his nausea and vomiting and diarrhea it was suspected that it
was likely secondary to gastroenteritis. He was seen by gastroenterology on this hospitalization. Stool studies were done and they were negative for C. difficile. Patient was also evaluated by physical therapy who recommended SNF however patient
continued to decline further evaluation from physical therapy. Since his symptoms were improving, he was then discharged home with instructions to follow-up with all his physicians outpatient.
Discharge Plan
-
Patient Disposition: Home (Routine Discharge)
Discharge Diagnosis/Procedures: Sepsis 2/2 Aspiration Pneumonia likely complication due to N/V
Nausea/vomiting and diarrhea likely 2/2 gastroenteritis
Suspect Ivana-Davidson tear
Hypokalemia
Ambulatory dysfunction
Diet: As tolerated
Activity: With assistance and As tolerated
Driving Restrictions: As prior to admission
Bathing Restrictions: None
Others Tests: Repeat chest x-ray with primary care provider in 3 to 4 weeks
Referrals:
Moreno Erazo DO [Family Provider] - in less than 1 week
Prescriptions:
New
folic acid 1 mg Tablet
1 mg PO DAILY Qty: 30 0RF
doxycycline hyclate 100 mg Capsule
100 mg PO Q12 Qty: 12 0RF
thiamine HCl (vitamin B1) 100 mg Tablet
100 mg PO BID Qty: 60 0RF
pantoprazole 40 mg Tablet,Delayed Release (Dr/Ec)
40 mg PO DAILY Qty: 30 0RF
cefdinir 300 mg capsule
300 mg PO BID Qty: 12 0RF
Continued
dorzolamide-timolol 1 DROP drops
1 drp BOTH EYES HS
brimonidine [Alphagan P] 1 DROP drops
1 drp BOTH EYES TID
pilocarpine HCl 4 % drops
2 drp RIGHT EYE TID
pilocarpine HCl 2 % drops
3 drp BOTH EYES TID
acetaminophen 325 mg Tablet
650 mg PO Q4HPRN PRN (Reason: mild pain) Qty: 0 0RF
docusate sodium 100 mg Capsule
100 mg PO BID Qty: 0 0RF
cyanocobalamin (vitamin B-12) 1,000 mcg Tablet
1,000 mcg PO DAILY Qty: 30 0RF
levetiracetam 500 MG tablet
500 mg PO BID Qty: 30 0RF
Discharge Orders:
Discharge Patient (As Directed); Ordered 12/26/23
Ordered By: Ganesh Diaz
Discharge Date and Time
Discharge Date/Time: 12/26/23 11:45
Print Language: OCCITAN
[2023-12-26 11:24] VITALS: BP 155/83
--- NOTE | 2023-12-26 11:57 | PTCARENOTE ---
Potassium Chloride 40meq PO administered per order. Discharge order entered; instructions reviewed with patient and daughter. Telemetry and IV site removed. Pt escorted in wheelchair by volunteer to daughters car.
== END 2023-12-26 11:45 | disposition home or self-care (01) | DRG 871 ==
LOC: 4 WEST ACU 21:52
PROVIDERS: Physician Assistant Medical; ADMITTING PHYSICIAN Internal Medicine; ATTENDING PHYSICIAN Internal Medicine; CONSULT PHYSICIAN Internal Medicine Gastroenterology; EMERGENCY PHYSICIAN Student in an Organized Health Care Education/Training Program; FAMILY PHYSICIAN Family Medicine
DX: A41.9 Sepsis, unspecified organism (principal); J69.0 Pneumonitis due to inhalation of food and vomit; K22.6 Gastro-esophageal laceration-hemorrhage syndrome; J90 Pleural effusion, not elsewhere classified; J98.11 Atelectasis; A09 Infectious gastroenteritis and colitis, unspecified; T67.5XXA Heat exhaustion, unspecified, initial encounter; X58.XXXA Exposure to other specified factors, initial encounter; Y93.H9 Activity, other involving exterior property and land maintenance, building and construction; Y92.838 Other recreation area as the place of occurrence of the external cause; Y99.0 Civilian activity done for income or pay; E87.6 Hypokalemia; I10 Essential (primary) hypertension; F10.10 Alcohol abuse, uncomplicated; K44.9 Diaphragmatic hernia without obstruction or gangrene; K21.9 Gastro-esophageal reflux disease without esophagitis; G40.909 Epilepsy, unspecified, not intractable, without status epilepticus; Z87.891 Personal history of nicotine dependence; Z11.52 Encounter for screening for COVID-19
CPT/HCPCS: 71046; 74177; 80048; 80053; 81003; 81015; 82550; 83605; 83690; 83735; 84145; 85025; 85027; 87040; 87045; 87046; 87324; 87328; 87329; 87427; 87449; 87502; 87811; 93005; 96361; 96365; 96375; 97162; 97166; 99285; Q9967

== ENCOUNTER 2024-05-29 20:24 | Inpatient (IN) | payer MEDICARE, OTHER, SELFPAY ==
[2024-05-29 18:27] VITALS: BP 167/94
[2024-05-29 18:29] VITALS: BP 167/94
[2024-05-29 18:33] VITALS: BMI 24.9
[2024-05-29 18:53] LABS: % Basophils 0.6 % (0-2); % Eosinophils 1.4 % (0-6); % Immature Granulocytes 0.7 % (0-0.5); % Lymphocytes 15.1 % (20.5-51.1); % Monocytes 10.4 % (1.7-9.3); % Neutrophils 71.8 % (42.2-75.2); Absolute Basophils 0.1 10^3/uL (0-0.2); Absolute Eosinophils 0.1 10^3/uL (0-0.7); Absolute Immature Granulocytes 0.1 10^3/uL (0-0.05); Absolute Lymphocytes 1.3 10^3/uL (1.2-3.4); Absolute Monocytes 0.9 10^3/uL (0.1-0.6); Absolute Neutrophils 6.1 10^3/uL (1.4-6.5); Hematocrit 45.6 % (39.0-52.0); Hemoglobin 15.2 g/dL (13.0-18.0); Mean Corp Hgb Conc. 33.3 g/dL (33.0-37.0); Mean Corpuscular Hgb 32.8 pg (27.0-31.0); Mean Corpuscular Volume 98.5 fL (80.0-94.0); Mean Platelet Volume 10.1 fL (7.4-10.4); Nucleated Red Blood Cells % 0 % (-); Platelet Count 193 10^3/uL (130-400); Red Blood Cell Count 4.63 10^6/uL (4.70-6.10); Red Cell Dist. Width 15.1 % (11.5-14.5); White Blood Cell Count 8.5 10^3/uL (4.8-10.8)
[2024-05-29 19:00] VITALS: BP 126/86
[2024-05-29 19:05] LABS: ALT (SGPT) 18 U/L (0-50); AST (SGOT) 28 U/L (17-59); Albumin 4.1 g/dl (3.5-5.0); Alkaline Phosphatase 70 U/L (38-126); Blood Urea Nitrogen 15 mg/dl (9-20); Calcium 8.6 mg/dl (8.4-10.2); Carbon Dioxide 19 mmol/L (22-30); Chloride 105 mmol/L (98-107); Estimated Creatinine Clearance 83 ml/min; Glucose 100 mg/dl (70-99); Potassium 4.5 mmol/L (3.5-5.1); Sodium 139 mmol/L (135-145); Total Bilirubin 1.5 mg/dl (0.2-1.3); Total Protein 6.9 g/dl (6.3-8.2); eGFR > 60.00
--- NOTE | 2024-05-29 19:29 | ED.GENMED ---
History of Present Illness
General
Chief Complaint: Fall
Source: patient
Time Seen by Provider: 05/29/24 19:04
History of Present Illness
History of Present Illness:
83-year-old male who presents after fall. Patient states that he was drinking today. Patient states he just lost his balance and fell. Denies head strike or loss of consciousness. Daughter at bedside states that the upstairs tenet notified her
of the fall. Patient denies neck or back pain. No motor weakness. No numbness or tingling. Patient complains of pain at the right hip when he tries to move it.
Past History
Past History
ED Past Medical History: HTN, Seizures and Other (Glaucoma, seizure in 2016)
ED Past Surgical History: Other (cataract surgery)
Patient has exhibited threatening behavior?: No
PSI?: No
Social History
Tobacco: Non-smoker
Alcohol: None
Drug: None
Personal:
Living: with family
Employment: Retired
Phy Exam
Physical Exam
Physical Exam:
CONSTITUTIONAL Patient alert and oriented to person, place. Well-appearing. Vital signs reviewed.
HEAD atraumatic, normocephalic.
EYES eyelids normal to inspection, Extraocular muscles intact, Conjunctiva normal, Sclera normal.
NECK normal range of motion, Trachea midline, no jugular venous distention.
RESPIRATORY CHEST No respiratory distress noted, Chest expansion equal, Bilateral breath sounds clear.
CARDIOVASCULAR regular rate and rhythm, Heart sounds normal.
ABDOMEN abdomen nontender, Bowel sounds normal. No distention.
UPPER EXTREMITY range of motion normal, Motor strength normal, no cyanosis, no edema.
LOWER EXTREMITY no cyanosis, no edema. Right hip held in external rotation. Unable to range the right hip due to pain
NEURO Speech normal, No focal motor deficits, Cranial Nerves intact to screening exam.
SKIN skin warm, dry, and normal in color.
Course
Orders/Labs/Results
Orders:
Orders
05/29/24 Breakfast
Regular
05/29/24 18:39
CR Hip - RT w/wo Pel 2-3 Vw* Urgent
Comment: fall
Reason For Exam: fall
Include a pelvis x-ray?: Yes
05/29/24 18:42
Alcohol Urgent
Complete Blood Count/With Diff Urgent
Comprehensive Metabolic Panel Urgent
05/29/24 19:33
Acetaminophen 1000MG/100Ml [Ofirmev] 1,000 mg in 100 ml IV ONCE
Acetaminophen IV Indication:: ED Narcotic Naive Pt-ONCE
05/29/24 19:43
Add On- LAB Urgent
Tests Added?: alcohol
05/29/24 19:44
EKG [Electrocardiogram (*1)] Urgent
Reason for Study: PreOp
05/29/24 19:58
Femur, Right 2 View [CR Femur - Right Min 2 Vw] Urgent
Comment:
Reason For Exam: fall, ortho requests full length imaging
05/29/24 20:03
Admit/Transfer Patient As Directed
Co-Sign Provider:
Level of Care: Inpatient admission
Assign to:: Telemetry
Physician / Group: Ceasar
Diagnosis: R Hip Fracture
Reason for Telemetry: Arrhythmia
Date to Stop Telemetry: 06/01/24
Time to Stop Telemetry: 11:00
Reason for Hospitalization: R Hip Fracture
Expected length of stay greater than two midnights?: Yes
ELOS- Estimated Length of Stay in days: 3
I certify the patient meets the requirements for IP care: Yes
HYDROmorphone [Dilaudid] 0.5 mg IV NOW STA
05/29/24 20:04
PRN Pain Medication Management As Directed
May give lesser potent ordered pain med per pt: Yes
preference::
Protocol:: Medication orders for pain may be administered in a
manner that supports deferring to patient preference
when the pt is:
- Requesting an ordered lesser potent pain medication.
Least to most potent pain medications are defined
as: acetaminophen < NSAID < tramadol < opioids
(morphine, oxycodone, hydromorphone).
- Requesting a lesser dose of the same medication IF
ORDERED.
- Requesting a less intrusive route of administration
if both routes are prescribed by the provider (PO <
IV).
05/29/24 20:06
Code Status As Directed
Resuscitation Status: Full Code
05/29/24 21:14
0.9% Sodium Chloride [Nss (Preservative Free)] See Protocol IV PRN PRN
Acetaminophen [Tylenol] 650 mg PO Q4HPRN PRN
FOLic ACID [Folvite] 1 mg 0.9% Sodium Chloride 50 ml [Nss] 50 ml IV DAILYPRN
HYDROmorphone [Dilaudid] 0.5 mg IV Q4HPRN PRN
Lorazepam [Ativan] 1 mg IV Q1HPRN PRN
Lorazepam [Ativan] 1 mg PO Q2HPRN PRN
Lorazepam [Ativan] 2 mg IV Q1HPRN PRN
Ondansetron Injectable [Zofran] 4 mg IV Q6HPRN PRN
05/29/24 21:14
Case Management Consult Once
Case Management Consult: Other
Comment: Substance abuse counseling
DIETARY CONSULT Routine
Reason for Consult: Nutrition support, possible refeeding guidelines
ORTHOPEDIC CONSULT Routine
Consulting Provider: Geo Gallardo
Was physician already notified: Yes
Reason for consult: R Hip Fracture
Keppra (Levetiracetam) [S] Routine
Magnesium Urgent
PTT Urgent
Phosphorus Urgent
Prothrombin Time Urgent
Urinalysis Routine
Activity As Directed
Activity Level: Bedrest
Bladder Scan As Directed
Follow Bladder Retention/Intermittent Cath Algorithm?: Yes
PRN if no void in __ hours: 6
Frequency: Per Retention Algorithm
If Bladder Scan Result >: 400
then:: Straight cath
I/O [Intake/ Output] As Directed
Frequency: Per unit guidelines
MSAS SCORE As Directed
MSAS Score 0-4: Repeat MSAS every 2 hours until 0-4 for three consecutive assessments, then every 4 hours x 48
hours.
MSAS Score 5-7: For MILD withdrawl symptoms. Repeat MSAS and RASS every 2 hours
MSAS Score 8-11: For MODERATE withdrawal symptoms. Repeat MSAS and RASS every 1 hour. Consider ICU or IMU
level of care.
MSAS Score > 11: For SEVERE withdrawal symptoms. Repeat MSAS and RASS every 1 hour. Notify provider, consider
ICU level of care.
MSAS Additional Instructions: If no improvement or no decrease in score from severe to moderate within 12
hours, consult psychiatry
MSAS Notify Provider: Notify provider if patient requires more than 10 mg of Lorazepam in eight hour period.
Pneumatic Compression Sleeves As Directed
Type: Knee high
Precautions As Directed
Type of Precautions: Seizure
Straight Cath As Directed
Frequency: Per Retention Algorithm
Additional Instructions: straight cath as needed per acute urinary retention algorithm for 24 hrs
Additional Instructions: for bladder scan greater than 400 mL
Vital Signs As Directed
Frequency: Per unit guidelines
Oxygen Therapy [O2 Therapy] [RESP] Routine
Titrate/Wean O2 to maintain O2 sat greater than (%): 94
DX Deep Vein Thrombosis Video Routine
05/29/24 22:00
Brimonidine [Alphagan P 0.15% Eye Drops] 1 drop BOTH EYES TID
Pilocarpine 4% [Isopto Carpine 4% Eye Drops] 2 drop BOTH EYES TID
Sennosides [Senokot] 17.2 mg PO HS
05/30/24 00:00
Thiamine Injection 200 mg IV Q8
05/30/24 Breakfast
NPO
Allow oral meds: Yes
Allow clear liquids: Sips of Clears
NPO for procedure after (time): Midnight
Basic Metabolic Panel IN AM
Complete Blood Count/No Diff IN AM
LFT [Ypegp-Eydo-Mqlvwln] IN AM
05/30/24 08:00
Docusate Sodium [Colace] 100 mg PO BID
FOLic ACID [Folvite] 1 mg PO DAILY
Levetiracetam [Keppra] 500 mg PO BID
Pantoprazole [Protonix] 40 mg PO DAILY
Timolol Maleate/Dorzolam HCl [Cosopt Eye Drops] 1 drop BOTH EYES BID
06/01/24 11:00
DC Protocol for Telemetry ONCE
06/02/24 08:00
Thiamine HCl [Vitamin B1] 100 mg PO BID
Abnormal Lab Results
05/29/24
18:42
RBC 4.63 L 10^6/uL
(4.70-6.10)
MCV 98.5 H fL
(80.0-94.0)
MCH 32.8 H pg
(27.0-31.0)
RDW 15.1 H %
(11.5-14.5)
Abs Immat Gran (auto) 0.1 H 10^3/uL
(0-0.05)
Absolute Monos (auto) 0.9 H 10^3/uL
(0.1-0.6)
Immature Gran % 0.7 H %
(0-0.5)
Lymphocytes % 15.1 L %
(20.5-51.1)
Monocytes % 10.4 H %
(1.7-9.3)
Carbon Dioxide 19 L mmol/L
(22-30)
Creatinine 0.6 L mg/dL
(0.7-1.3)
Glucose 100 H mg/dl
(70-99)
Total Bilirubin 1.5 H mg/dl
(0.2-1.3)
05/29/24 18:42
05/29/24 18:42
Vital Signs
Initial and Last Documented VS:
Initial Vital Signs
Temp Pulse Resp BP Pulse Ox
98.3 F 70 17 167/94 95
05/29/24 18:27 05/29/24 18:27 05/29/24 18:27 05/29/24 18:27 05/29/24 18:27
Last Documented Vital Signs
Temp Pulse Resp BP Pulse Ox
98.3 F 71 17 126/86 92
05/29/24 18:27 05/29/24 19:00 05/29/24 19:00 05/29/24 19:00 05/29/24 21:02
MDM/Problems Addressed
MDM/Problems Addressed:
Acute right-sided intertrochanteric hip fracture, intoxication
*Radiology
Radiology exam reviewed: preliminary read by ED provider (Hip fracture)
*Pulse Oximetry
Patient hypoxic: no
*Critical Care Note
Total Time (30-74mins, 75-104mins- exclusive of procedures): Not Applicable
Data Reviewed
Review of Other/Old Records Reveals: Operative Reports (Prior hip surgery reviewed, performed by Dr. Gallardo)
Source: patient
Prescriptions/Medications Considered But Not Given:
Considered narcotic pain control but patient is intoxicated
Patient Management
Discussion with other providers: Hospitalist and Enrollment Services Vice President (Case discussed with orthopedics)
Escalation/DeEscalation of care consider admission/obs:
Stable, no head injury. Admit. Orthopedics aware
ED Attending Note
-
Portions of this chart may have been created with voice recognition software.� Occasional wrong word or��sound alike� substitutions may have occurred due to the inherent limitations of voice recognition software.
Discharge Plan
Departure
Patient Disposition: Admit
Date of Disposition: 05/29/24
Time of Disposition: 19:29
Admit to: Med/Surg
Presentation/result/management discussed w/ accepting MD/DO: Hospitalist
Discharge Problem:
Closed hip fracture
Interventions
Interventions:
*Risk Screen - Suicide Last Done: 05/29/24 18:36
*General Assessment Last Done: 05/29/24 18:36
*Neglect/Abuse Screening Last Done: 05/29/24 18:36
ED- Fall Risk Assessment Last Done: 05/29/24 21:05
*ED COVID-19 Vaccine History Last Done: 05/29/24 18:33
*Nursing Disposition Last Done: 05/29/24 21:05
ED-Musculoskeletal Assessment Last Done: 05/29/24 18:36
ED- Neurological Assessment Last Done: 05/29/24 18:36
ED-Skin Assessment Last Done: 05/29/24 18:36
Discharge Date and Time
Discharge Date/Time: 05/29/24 21:07
[2024-05-29] MEDS: OFIRMEV 100 IV (19:37)
[2024-05-29 19:52] LABS: Alcohol 207 mg/dl
--- NOTE | 2024-05-29 20:12 | HPS.HSE ---
Family Physician
-
Family Physician: Darius Reynoso MD
Chief Complaint
-
R Hip Pain
History of Present Illness
Patient is an 83y M with PMH significant for alcohol use disorder and prior history of seizure who presents to ED complaining of R hip s/p fall. Patient is unable to recall the specifics of the fall. He will begin to tell a story, but then
admits that he cannot remember the specifics. He essentially found himself on the floor, unable to stand and with pain in the R hip. EMS was called and patient brought to the ED for further evaluation and treatment. Patient denies any recent
symptoms of illness, fevers / chills, cough, SOB, etc.
He has no complaints at present other than R hip pain.
Patient admits to daily alcohol use - typically 3-4 vodka drinks per day. He had two drinks so far today - his last being this afternoon.
In the ED, patient has no complaints with the exception of R hip pain.
Medical History
Past Medical History
Past Medical History: Reports Other
Additional Past Medical History:
Seizure Disorder
Alcohol Use Disorder
Glaucoma
Past Surgical History: Reports Other
Additional Past Surgical History:
Left Hip ORIF
Left Knee Surgery
Cataract Surgery
Social History
Tobacco: Former Smoker (Quit in 2004. History of cigar smoking.)
Alcohol: Daily (Patient reports 2-4 glasses of Vodka nightly)
Family History
Family History: Other (Longevity, Glaucoma)
Allergies / Home Medications
Allergies reflects when Allergies were last updated in [facility].
Home Medications with original date entered in [facility]
Allergy/Medication List:
Allergies
Allergy/AdvReac Type Severity Reaction Status Date / Time
No Known Allergies Allergy Verified 05/29/24 18:32
Home Medications
brimonidine 0.15 % eye drops (Alphagan P) 1 drp BOTH EYES TID Eye condition 04/19/17
dorzolamide 22.3 mg-timolol 6.8 mg/mL eye drops 1 drp BOTH EYES BID Eye condition 04/19/17
pilocarpine HCl 2 % eye drops 3 drp BOTH EYES TID Eye condition 06/26/22
pilocarpine HCl 4 % eye drops 2 drp BOTH EYES TID Eye condition 06/26/22
acetaminophen 325 mg tablet 650 mg (2 x 325 mg) PO Q4HPRN PRN mild pain #0 tabs 06/29/22
docusate sodium 100 mg capsule 100 mg PO BID #0 caps 06/29/22
cyanocobalamin (vitamin B-12) 1,000 mcg tablet 1,000 mcg PO DAILY #30 tabs 07/12/22
levetiracetam 500 mg tablet 500 mg PO BID Neurological Condition #30 tabs 07/13/22
folic acid 1 mg tablet 1 mg PO DAILY #30 tabs 12/26/23
pantoprazole 40 mg tablet,delayed release 40 mg PO DAILY #30 tabs 12/26/23
thiamine HCl (vitamin B1) 100 mg tablet 100 mg PO BID #60 tabs 12/26/23
Review of Systems
-
History Source: Patient
A 12 point ROS was completed and negative except as noted: Yes
Constitutional: Denies Fever or Chills
Respiratory: Denies Cough or Trouble Breathing
Cardiac: Denies Chest Pain or Palpitations
Abdomen/GI: Reports Nausea; Denies Abdominal Pain, Vomiting or Diarrhea
: Denies Dysuria, Frequency or Flank Pain
Musculoskeletal: Reports Joint Pain; Denies Edema
Neurological: Denies Dizzy or Headache
Psych: Denies Depression or Anxiety
Physical Exam
Vital Signs
Vital Signs
Temp Pulse Resp BP Pulse Ox
98.3 F 80 20 167/94 95
05/29/24 18:27 05/29/24 18:30 05/29/24 18:30 05/29/24 18:29 05/29/24 18:30
Physical Exam
General: Other (83y M in no acute distress.)
HEENT: Moist mucous membranes and PERRLA
Respiratory: Clear; No Wheezes, Rales or Rhonchi
Cardiac: S1/S2 and Regular Rhythm; No Murmur
GI: Soft, Non Tender, Non Distended and Normal Bowel Sounds
Musculoskeletal: No Clubbing, No Cyanosis, No Edema and Other (RLE externally rotated.)
Neuro: AO x 3
Laboratory Results
-
05/29/24 18:42
05/29/24 18:42
Laboratory Results
Total Bilirubin 1.5 mg/dl (0.2-1.3) H 05/29/24 18:42
AST 28 U/L (17-59) 05/29/24 18:42
ALT 18 U/L (0-50) 05/29/24 18:42
Alkaline Phosphatase 70 U/L (38-126) 05/29/24 18:42
Impression/Plan
-
A/P: Patient is an 83y M with PMH significant for alcohol use disorder and prior seizures who presents to ED complaining of R hip pain s/p apparent fall at home.
Right Femur Fracture
- Admit for further evaluation and treatment.
- Supportive care, bedrest, pain control overnight.
- Ortho evaluation for operative repair.
- Post-op pain control, DVT prophylaxis, PT / OT, etc.
- EKG in the ED with LBBB and no significant change from prior tracings.
- Patient is at increased risk for complications related to anesthesia - primarily related to chronic alcohol use disorder.
- Benefits of planned procedure outweigh the potential risks and patient elects to proceed.
- At present, patient is OK to proceed to OR without additional pre-op evaluation(s).
- Monitor for development of alcohol withdrawal syndromes as noted below - which may impact suitability for / timing of surgery.
Fall at Home
- Mechanism of fall are unclear. ? syncope / LOC - also unclear.
- No headache or other focal complaints other than R hip pain.
- Monitor on telemetry for any arrhythmia.
- Follow for any new / recurrent symptoms.
- PT / OT evaluations post-op.
Alcohol Use Disorder
Seizure Disorder
- Suspect that these two are intimately related.
- Patient states that he has been on Keppra since seizures 8-10 years ago - none since that time.
- Suspect this was secondary to EtOH withdrawal at that time.
- Continue Keppra and check current levels.
- MSAS procotol and liberally treat with PRN BZDs to minimize / avoid withdrawal symptoms.
- Thiamine, folate, MVI replacement, etc.
Glaucoma
- Stable. Continue current eye drop regimen.
DVT Prophylaxis: SCDs for now. Post-op per Ortho.
Code Status: Full
[2024-05-29] MEDS: DILAUDID 0.5 MG IV ×2 (20:15→23:45)
[2024-05-29 21:03] VITALS: BP 132/68
[2024-05-29 21:23] VITALS: BP 142/76; BMI 24.1
[2024-05-29] MEDS: SENOKOT PO (22:36)
[2024-05-29] MEDS: ALPHAGAN P 0.15% EYE DROPS 1 DROP BOTH EYES (22:37)
[2024-05-29] MEDS: PILOCARPINE 4% 1 DROP BOTH EYES (22:37)
[2024-05-29 23:07] VITALS: BP 101/64
[2024-05-29 23:21] LABS: Magnesium 2.1 mg/dl (1.6-2.3); Phosphorus 3.6 mg/dl (2.5-4.5)
[2024-05-29] MEDS: THIAMINE INJECTION 200 MG IV (23:44)
--- NOTE | 2024-05-29 23:59 | TRANSFER ---
Pt brought to floor via stretcher from ED at 2110 dx right hip fracture, RLE shortened and ext rotated. C/o 3/10 pain when not moving. Pt AAOx3, able to make all needs known. Visually impaired, is able to use call guevara appropriately. VSS, bed in
lowest position, call guevara within reach. Safety maintained.
[2024-05-30] VITALS (12 sets, daily range): BP systolic 120–163; BP diastolic 65–82
[2024-05-30 04:03] LABS: Urine Albumin Negative (Neg - Trace); Urine Bilirubin Negative (Negative); Urine Character Clear (Clear); Urine Color Yellow; Urine Glucose Negative (Negative); Urine Ketone Negative (Negative); Urine Leukocyte Negative (Negative); Urine Nitrite Negative (Negative); Urine Occult Blood Negative (Negative); Urine Specific Gravity 1.015 (<1.030); Urine Urobilinogen Negative (Neg - 1+)
[2024-05-30] MEDS: ZOFRAN 4 MG IV (04:12)
[2024-05-30] MEDS: DILAUDID 0.5 MG IV ×4 (04:15→15:10)
[2024-05-30 05:44] LABS: Hematocrit 38.3 % (39.0-52.0); Hemoglobin 12.7 g/dL (13.0-18.0); Mean Corp Hgb Conc. 33.2 g/dL (33.0-37.0); Mean Corpuscular Hgb 32.1 pg (27.0-31.0); Mean Corpuscular Volume 96.7 fL (80.0-94.0); Mean Platelet Volume 10.8 fL (7.4-10.4); Platelet Count 195 10^3/uL (130-400); Red Blood Cell Count 3.96 10^6/uL (4.70-6.10); White Blood Cell Count 14.4 10^3/uL (4.8-10.8)
[2024-05-30 05:48] LABS: APTT 32.1 Sec (23.4-35.0); PT 13.5 Sec (11.4-14.6)
[2024-05-30 06:03] LABS: ALT (SGPT) 19 U/L (0-50); AST (SGOT) 25 U/L (17-59); Albumin 3.7 g/dl (3.5-5.0); Alkaline Phosphatase 77 U/L (38-126); Blood Urea Nitrogen 16 mg/dl (9-20); Calcium 8.4 mg/dl (8.4-10.2); Carbon Dioxide 21 mmol/L (22-30); Chloride 104 mmol/L (98-107); Direct Bilirubin 0.2 mg/dl (0.0-0.4); Estimated Creatinine Clearance 71 ml/min; Glucose 98 mg/dl (70-99); Potassium 4.1 mmol/L (3.5-5.1); Sodium 139 mmol/L (135-145); Total Bilirubin 1.6 mg/dl (0.2-1.3); Total Protein 6.3 g/dl (6.3-8.2); eGFR > 60.00
[2024-05-30] MEDS: KEPPRA 500 MG PO ×2 (07:55→19:19)
[2024-05-30] MEDS: TYLENOL 650 MG PO (07:55)
[2024-05-30] MEDS: PROTONIX 40 MG PO (07:55)
[2024-05-30] MEDS: FOLVITE 1 MG PO (07:55)
[2024-05-30] MEDS: COLACE 100 MG PO ×2 (07:55→19:18)
[2024-05-30] MEDS: COSOPT EYE DROPS 1 DROP BOTH EYES ×2 (07:56→19:18)
[2024-05-30] MEDS: ALPHAGAN P 0.15% EYE DROPS 1 DROP BOTH EYES ×3 (07:56→21:07)
[2024-05-30] MEDS: PILOCARPINE 4% 1 DROP BOTH EYES ×2 (07:56→15:56)
[2024-05-30] MEDS: THIAMINE INJECTION 200 MG IV ×3 (07:56→23:52)
--- NOTE | 2024-05-30 09:03 | W.PN.HOSP.TC ---
Today's Communication/Plan
-
NPO for orthopedic intervention ORIF
pain control
MSAS protocol
Assessment / Plan
Assessment / Plan
Physical Exam
General: no acute distress appears relatively comfortable
HEENT: Moist mucous membranes and PERRLA
Respiratory: Clear; No Wheezes, Rales or Rhonchi
Cardiac: S1/S2 and Regular Rhythm; No Murmur
GI: Soft, Non Tender, Non Distended and Normal Bowel Sounds
Musculoskeletal: No Clubbing, No Cyanosis, No Edema, RLE externally rotated and appears shorter compared to LLE
Neuro: AO x 3
83M ETOH use disorder hx sz here with right hip fx falling fall.
A/P: Patient is an 83y M with PMH significant for alcohol use disorder and prior seizures who presents to ED complaining of R hip pain s/p apparent fall at home.
Right Femur Fracture
- Supportive care, bedrest, pain control
- Ortho evaluation appreciated NPO for ORIF
- EKG in the ED with LBBB and no significant change from prior tracings.
- at risk for complications orthopedic surgical intervention but risk is not prohibitive and potential benefits outweigh risks.
Fall at Home
- Mechanism of fall likely related to ETOH (level 207 on admit)
- No headache or other focal complaints other than R hip pain.
- Monitor on telemetry for any arrhythmia.
- Follow for any new / recurrent symptoms.
- PT / OT evaluations post-op.
Alcohol Use Disorder
Seizure Disorder
- Suspect that these two are intimately related.
- Patient states that he has been on Keppra since seizures 8-10 years ago - none since that time.
- Suspect this was secondary to EtOH withdrawal at that time.
- Continue Keppra, lvl pending
- MSAS procotol, no significant withdrawal so far
- Thiamine, folate, MVI supplementation
Glaucoma
- Stable. Continue current eye drop regimen.
DVT Prophylaxis: SCDs for now. Post-op per Ortho.
Code Status: Full
Discussed with patient and patient's daughter Martha
Anticipated Discharge: 24 - 48 hours
Subjective/Interval History
-
Date of Service: May 30, 2024
No acute distress resting comfortably in bed. Reports significant pain right hip at rest exacerbated with movement. Daughter Martha present during evaluation.
Objective Data
-
Labs:
Laboratory Results
05/30/24
04:44
WBC 14.4 H
Hgb 12.7 L
Hct 38.3 L
Plt Count 195
PT 13.5
INR 1.00
APTT 32.1
Sodium 139
Potassium 4.1
Chloride 104
Carbon Dioxide 21 L
BUN 16
Creatinine 0.7
Glucose 98
Calcium 8.4
Total Bilirubin 1.6 H
AST 25
ALT 19
Alkaline Phosphatase 77
Vital Signs:
Vital Signs
Temp Pulse Resp BP Pulse Ox
98.5 F 101 16 132/74 93
05/30/24 07:27 05/30/24 07:27 05/30/24 07:27 05/30/24 07:27 05/30/24 07:27
I&O
05/29/24 05/30/24 05/31/24
06:59 06:59 06:59
Output Total 650 / 650
Balance -650 / -650
--- NOTE | 2024-05-30 10:12 | CM ---
Reviewed the chart notes and spoke with the patient at the bedside. CM consult received for substance abuse counseling. Offered [facility], [facility], [facility], etc. Patient declined resources at this time. The patient anticipates going to the OR today for hip
fx repair. The patient resides alone in a first floor condo with one step to enter. The patient has in the home is needed a cane and rolling walker. The patient reports no VN or SNF in the past. The patient confirmed his pharmacy of choice is
the [facility]. CM continues to be available to patient/family and is monitoring medical plan for needs at discharge.
Plan: Discharge plans will depend on the patient's progress. Most likely will need short term rehab prior to transitioning back to home.
--- NOTE | 2024-05-30 12:58 | CON.ORTHO ---
Consultation - Orthopedics
History
HPI: 83-year-old male presented to the emergency department status post fall with complaints of right hip pain. He was subsequently admitted to the hospitalist service after being diagnosed with a right intertrochanteric femur fracture.
Orthopedics is consulted. Patient reports that he tripped and lost his balance. He was reportedly drinking earlier in the day. He does report that he lives alone at home. He does occasionally use a cane. 2 years ago he did sustain a left
peritrochanteric femur fracture and underwent cephalomedullary nail fixation. He reports that this has not really been giving him any problems although he does note some soreness occasionally when laying directly on the left side. Today pain is
well localized to the right groin. Pain is made worse with any attempted motion or attempted ambulation.
Allergies / Home Medications
Past medical history: Seizures, hypertension, glaucoma
Past surgical history: Cataract surgery, left cephalomedullary nail fixation peritrochanteric femur fracture
Social history: Lives alone at home ,daily alcohol use
Family history: Not pertinent
Allergy/AdvReac Type Severity Reaction Status Date / Time
No Known Allergies Allergy Verified 05/29/24 18:32
�Medication �Instructions �Recorded
brimonidine 0.15 % eye drops 1 drp BOTH EYES TID Eye condition 04/19/17
(Alphagan P)
dorzolamide 22.3 mg-timolol 6.8 1 drp BOTH EYES BID Eye condition 04/19/17
mg/mL eye drops
pilocarpine HCl 2 % eye drops 3 drp BOTH EYES TID Eye condition 06/26/22
pilocarpine HCl 4 % eye drops 2 drp BOTH EYES TID Eye condition 06/26/22
acetaminophen 325 mg tablet 650 mg (2 x 325 mg) PO Q4HPRN PRN 06/29/22
mild pain #0 tabs
docusate sodium 100 mg capsule 100 mg PO BID #0 caps 06/29/22
cyanocobalamin (vitamin B-12) 1,000 mcg PO DAILY #30 tabs 07/12/22
1,000 mcg tablet
levetiracetam 500 mg tablet 500 mg PO BID Neurological 07/13/22
Condition #30 tabs
folic acid 1 mg tablet 1 mg PO DAILY #30 tabs 12/26/23
pantoprazole 40 mg tablet,delayed 40 mg PO DAILY #30 tabs 12/26/23
release
thiamine HCl (vitamin B1) 100 mg 100 mg PO BID #60 tabs 12/26/23
tablet
Vital Signs / Lab Results
Temp Pulse Resp BP Pulse Ox
98.3 F 83 16 120/81 93
05/30/24 12:00 05/30/24 12:00 05/30/24 12:00 05/30/24 12:00 05/30/24 12:00
05/30/24 04:44
05/30/24 04:44
10 point review systems reviewed and negative unless otherwise stated
General: Pleasant, no acute distress at rest
Musculoskeletal right lower extremity
Skin intact, no erythema or ecchymotic staining
Extremity shortened externally rotated
Tenderness palpation over groin and lateral trochanteric flare
No palpable ipsilateral knee effusion
Positive EHL, FHL, ankle dorsiflexion, plantarflexion
No other areas of bony tenderness palpation crepitation of long bones or joints on tertiary exam
Diagnostic studies
X-rays right femur and right hip independently viewed by myself. There is a minimally displaced right intertrochanteric femur fracture noted
Assessment / Plan
83-year-old male status post fall right intertrochanteric femur fracture. Had a long detailed discussion the patient regarding diagnosis and treatment options. Discussed postsurgical nonsurgical options. After discussion we mutually elected to
proceed with right cephalomedullary nail fixation right intertrochanteric femur fracture. He underwent the same procedure for similar injury 2 years ago with fairly uneventful recovery. We discussed risks benefits and alternatives of surgery. We
discussed the usual expected perioperative and postoperative course. After discussion written informed consent was obtained
Nonweightbearing right lower extremity
PT OT: Deferred until postoperative setting
DVT prophylaxis: Please hold in preparation for OR
Pain control
N.p.o.
Medical management per primary team
Plan: 2 OR today for operative fixation right intertrochanteric femur fracture pending or availability and medical clearance
--- NOTE | 2024-05-30 14:53 | OR.RPT ---
Operative Report
Operative Report
Anesthesia Type:
General
Operative Indications:
Right
Intertrochanteric femur fracture
Operative Findings :
Same
Complications:
None
Implants:
10 mm x 130 degree short gamma nail, 105 mm cephalomedullary screw, 37.5 x 5 mm distal interlocking screw
Procedure and Technique:
Insertion right short cephalomedullary nail
INDICATIONS FOR PROCEDURE:
83year-old patient presented status post mechanical fall. They were subsequently diagnosed with an intertrochanteric femur fracture. Orthopedics was consulted for further evaluation and treatment. After discussion with the patient and her
family, decision was made to proceed with operative intervention in the form of short cephalomedullary nail. Long discussion was had regarding risks and benefits of procedure. Risks include but are not limited to infection, blood loss, damage to
surrounding structures, persistent pain, loss of function, need for repeat surgery, implant cut out, periprosthetic fracture, DVT/PE and adverse risks of anesthesia. Benefits include early mobilization and fracture stabilization. After discussion
written informed consent was obtained. Patient had had previous surgery for the same problem on the left side 2 years ago and was well versed in the rehabilitation and complication profile.
OPERATIVE PROCEDURE:
Patient was seen and identified in the preoperative holding area. Operative extremity was marked. Patient was taken to the operating room and provided anesthesia by the anesthesia team. Placed supine on fracture table. Nonoperative extremity was
placed in a scissored position and padded with a pillow to the central post of the fracture table. Operative extremity was placed in a well-padded fracture boot. Biplanar fluoroscopy confirmed appropriate reduction after axial traction, adduction
and slight internal rotation of the fracture. Operative extremity was then prepped and draped in normal sterile fashion. Timeout was performed again identifying the operative extremity correctly. Preoperative antibiotics were addressed.
A small incision was made 2 fingerbreadths proximal to the greater trochanter. Sharp dissection was carried through skin and subcutaneous tissues deep fascial layers. Guidepin was then inserted under biplanar fluoroscopic guidance through the
greater trochanter in accordance with the implants operative technique. This was inserted to a depth just distal to the lesser trochanter. Proximal opening reamer was then utilized. A 10 millimeter X 130 degree short cephalomedullary nail was
then inserted to the appropriate depth. Trocar was then inserted through the aiming arm. Sharp dissection was then carried through skin and subcutaneous tissues as well as deep fascial layers. Guidewire was inserted through the trocar into the
femoral neck and head. Appropriate position was confirmed under biplanar fluoroscopy. Attention was made to minimize the tip apex distance. Measurements were obtained for the cephalomedullary screw. Cannulated drill was then drilled to the
appropriate depth followed by the insertion of cannulated cephalomedullary screw. Appropriate final position of the screw within the confines of the femoral neck and head were confirmed again on biplanar fluoroscopy. Setscrew was deployed.
Additional trocar was then inserted through the aiming arm for the distal interlocking screw. Sharp dissection was carried through skin, subcutaneous tissues and deep fascial layers. Appropriate length interlocking screw was then drilled and
inserted. Final appropriate positioning was confirmed again on biplanar fluoroscopy. Satisfied with the extent of surgery, wounds were copiously irrigated with normal saline solution and closed in a layered fashion utilizing 0 Vicryl for deep
fascial layer, 2-0 Vicryl for subcu cutaneous layer and quentin for skin. Aquacel dressings were applied. Anesthesia was reversed and patient was taken to the operating room in stable condition.
Disposition:
PACU stable condition
[2024-05-30] MEDS: NSS 1000 IV (15:54)
[2024-05-30] MEDS: ANCEF 5 IV ×2 (15:55→23:52)
[2024-05-30] MEDS: ROXICODONE 5 MG PO (19:19)
[2024-05-30] MEDS: PILOCARPINE 4% 2 DROP BOTH EYES (21:07)
[2024-05-30] MEDS: SENOKOT 17.2 MG PO (21:08)
[2024-05-31] VITALS (7 sets, daily range): BP systolic 116–162; BP diastolic 71–96; PULSE 94; O2SAT 92
[2024-05-31] MEDS: ROXICODONE 5 MG PO ×3 (01:21→11:01)
[2024-05-31] MEDS: NSS 1000 IV (02:23)
[2024-05-31] MEDS: KEPPRA 500 MG PO ×2 (07:23→19:50)
[2024-05-31] MEDS: FOLVITE 1 MG PO (07:23)
[2024-05-31] MEDS: THIAMINE INJECTION 200 MG IV ×2 (07:23→16:44)
[2024-05-31] MEDS: COLACE 100 MG PO ×2 (07:23→19:50)
[2024-05-31] MEDS: PROTONIX 40 MG PO (07:23)
[2024-05-31] MEDS: LOVENOX 40 MG SC (07:24)
[2024-05-31] MEDS: PILOCARPINE 4% 1 DROP BOTH EYES ×2 (07:25→16:44)
[2024-05-31] MEDS: COSOPT EYE DROPS 1 DROP BOTH EYES ×2 (07:25→19:50)
[2024-05-31] MEDS: ALPHAGAN P 0.15% EYE DROPS 1 DROP BOTH EYES ×3 (07:26→22:27)
[2024-05-31 07:27] LABS: Hematocrit 32.7 % (39.0-52.0); Hemoglobin 11.1 g/dL (13.0-18.0); Mean Corp Hgb Conc. 33.9 g/dL (33.0-37.0); Mean Corpuscular Hgb 32.6 pg (27.0-31.0); Mean Corpuscular Volume 96.2 fL (80.0-94.0); Mean Platelet Volume 11.2 fL (7.4-10.4); Platelet Count 154 10^3/uL (130-400); Red Cell Dist. Width 15.1 % (11.5-14.5); White Blood Cell Count 12.9 10^3/uL (4.8-10.8)
[2024-05-31 07:39] LABS: Blood Urea Nitrogen 16 mg/dl (9-20); Calcium 7.8 mg/dl (8.4-10.2); Carbon Dioxide 24 mmol/L (22-30); Chloride 106 mmol/L (98-107); Estimated Creatinine Clearance 83 ml/min; Glucose 108 mg/dl (70-99); Magnesium 2.1 mg/dl (1.6-2.3); Phosphorus 3.3 mg/dl (2.5-4.5); Potassium 4.4 mmol/L (3.5-5.1); Sodium 138 mmol/L (135-145); eGFR > 60.00
--- NOTE | 2024-05-31 07:43 | W.PN.HOSP.TC ---
Today's Communication/Plan
-
pain control
PT/OT
discharge planning SNF rehab
Monitor mild leukocytosis off abx for now, suspect stress reactive
Replete Calcium
Assessment / Plan
Assessment / Plan
Physical Exam
General: no acute distress appears comfortable
HEENT: Moist mucous membranes and PERRLA
Respiratory: Clear; No Wheezes, Rales or Rhonchi
Cardiac: S1/S2 and Regular Rhythm; No Murmur
GI: Soft, Non Tender, Non Distended and Normal Bowel Sounds
Musculoskeletal: No Clubbing, No Cyanosis, No Edema
Neuro: AO x 3
83M ETOH use disorder hx sz here with right hip fx falling fall.
A/P: Patient is an 83y M with PMH significant for alcohol use disorder and prior seizures who presents to ED complaining of R hip pain s/p apparent fall at home.
Fall at Home
Mechanism of fall likely related to ETOH (level 207 on admit)
Right Femur Fracture
Ortho evaluation appreciated s/p ORIF 05/30 cephalomedullary nail fixation
-WBAT
-Pain Control
-DVT ppx 28 days Lovenox renally dosed
-outpt follow up 2-3 weeks staple removal
PT/OT appreciated SNF rehab
Alcohol Use Disorder
Seizure Disorder
- Suspect that these two are intimately related.
- Patient states that he has been on Keppra since seizures 8-10 years ago - none since that time.
- Suspect this was secondary to EtOH withdrawal at that time.
- Continue Keppra, lvl pending
- MSAS procotol, no significant withdrawal so far
- Thiamine, folate, MVI supplementation
Leukocytosis
-likely stress reactive
-monitor off abx for now
Mild Macrocytic Anemia
-monitor H&H
-check Iron studies, B12, Folate
Mild Hypocalcemia
-repleted with short course oral Calcium
-monitor
Glaucoma
- Stable. Continue current eye drop regimen.
DVT Prophylaxis: Lovenox
Code Status: Full
I spent a total of 45 minutes with the patient or on the floor. More than 50% of this time involved counseling and coordination of care.
Anticipated Discharge: 24 - 48 hours
Subjective/Interval History
-
Date of Service: May 31, 2024
Seen and examined at bedside in no acute distress sitting up comfortably in chair. Reports pain well controlled at this time with current pain regimen. Denies constipation. Overall reports feeling well.
Objective Data
-
Labs:
Laboratory Results
05/31/24
06:46
WBC 12.9 H
Hgb 11.1 L
Hct 32.7 L
Plt Count 154 D
Sodium 138
Potassium 4.4
Chloride 106
Carbon Dioxide 24
BUN 16
Creatinine 0.6 L
Glucose 108 H
Calcium 7.8 L
Vital Signs:
Vital Signs
Temp Pulse Resp BP Pulse Ox
98.2 F 73 18 151/77 95
05/31/24 03:42 05/31/24 03:42 05/31/24 03:42 05/31/24 03:42 05/31/24 03:42
I&O
05/30/24 05/31/24 06/01/24
06:59 06:59 06:59
Intake Total 1939
Output Total 650 / 650 800 / 800
Balance -650 / -650 1140 / 1140
[2024-05-31] MEDS: DILAUDID 0.5 MG IV ×2 (08:24→13:56)
--- NOTE | 2024-05-31 10:35 | W.PN.ORTHO ---
Today's Communication / Plan
-
83-year-old male postop day 1 status post right cephalomedullary nail fixation right intertrochanteric femur fracture doing well
Weightbearing as tolerated right lower extremity
PT OT
Pain control
Medical management per primary team
DVT prophylaxis: Recommend Lovenox x 28 days renally dosed
Plan to follow-up outpatient with myself in 2 to 3 weeks for repeat evaluation with planned removal of quentin
Subjective
.
.:
Patient resting comfortably in chair. Reports pain is improved compared to prior to surgery.
Vital Signs and Labs
.
Vital Signs and Labs:
Lab Results
05/31/24 06:46
05/31/24 06:46
Temp Pulse Resp BP Pulse Ox
98.9 F 79 18 162/86 95
05/31/24 07:53 05/31/24 07:53 05/31/24 07:53 05/31/24 07:53 05/31/24 07:53
PT 13.5 Sec (11.4-14.6) 05/30/24 04:44
INR 1.00 05/30/24 04:44
Physical Exam
-
Musculoskeletal right lower extremity
Dressing with mild bloody drainage proximal dressing
Moderate swelling thigh
Positive EHL, FHL, ankle dorsiflexion, plantarflexion
--- NOTE | 2024-05-31 11:35 | CM ---
Reviewed the chart notes and spoke with the patient at the bedside. PT/OT recommending SNF/rehab. Patient requested [facility]. Patient had been to [facility] previously. Referral sent via [facility]. CM continues to be available to patient/family and is
monitoring medical plan for needs at discharge.
Plan: Discharge to acute vs skilled rehab.
[2024-05-31] MEDS: NSS IV (12:08)
[2024-05-31] MEDS: OSCAL CAL 500 500 MG PO ×2 (13:56→19:51)
[2024-05-31] MEDS: ROXICODONE 10 MG PO (20:01)
[2024-05-31 20:31] LABS: Keppra (Levetiracetam) 4 ug/mL (10-40)
[2024-05-31] MEDS: SENOKOT 17.2 MG PO (22:26)
[2024-05-31] MEDS: PILOCARPINE 4% 2 DROP BOTH EYES (22:28)
[2024-06-01] MEDS: THIAMINE INJECTION 200 MG IV ×3 (00:10→16:27)
[2024-06-01] MEDS: ROXICODONE 5 MG PO (04:52)
[2024-06-01 05:34] LABS: Hemoglobin 9.9 g/dL (13.0-18.0); Mean Corpuscular Hgb 31.9 pg (27.0-31.0); Mean Corpuscular Volume 96.8 fL (80.0-94.0); Platelet Count 148 10^3/uL (130-400); Red Cell Dist. Width 15.3 % (11.5-14.5); White Blood Cell Count 11.6 10^3/uL (4.8-10.8)
[2024-06-01 06:04] LABS: ALT (SGPT) 12 U/L (0-50); AST (SGOT) 17 U/L (17-59); Albumin 2.9 g/dl (3.5-5.0); Alkaline Phosphatase 57 U/L (38-126); Blood Urea Nitrogen 15 mg/dl (9-20); Chloride 104 mmol/L (98-107); Direct Bilirubin 0.2 mg/dl (0.0-0.4); Estimated Creatinine Clearance 83 ml/min; Glucose 104 mg/dl (70-99); Iron 37 ug/dl (49-181); Phosphorus 2.4 mg/dl (2.5-4.5); Potassium 3.9 mmol/L (3.5-5.1); Sodium 137 mmol/L (135-145); Total Bilirubin 1.6 mg/dl (0.2-1.3); Total Protein 5.3 g/dl (6.3-8.2); eGFR > 60.00
[2024-06-01 06:13] LABS: Percent Saturation 17 % (20-50); Total Iron Binding Capacity 209 ug/dl (261-462)
[2024-06-01 06:34] LABS: Carbon Dioxide 27 mmol/L (22-30)
[2024-06-01 07:05] VITALS: BP 106/71
[2024-06-01 07:39] LABS: Folate 10.8 ng/ml (2.76-20); Vitamin B12 842 pg/ml (239-931)
[2024-06-01] MEDS: COLACE 100 MG PO ×2 (07:47→20:56)
[2024-06-01] MEDS: FOLVITE 1 MG PO (07:49)
[2024-06-01] MEDS: OSCAL CAL 500 500 MG PO (07:49)
[2024-06-01] MEDS: PROTONIX 40 MG PO (07:49)
[2024-06-01] MEDS: KEPPRA 500 MG PO ×2 (07:49→20:55)
[2024-06-01] MEDS: LOVENOX 40 MG SC (07:50)
[2024-06-01] MEDS: PILOCARPINE 4% 1 DROP BOTH EYES ×3 (07:57→22:31)
[2024-06-01] MEDS: COSOPT EYE DROPS 1 DROP BOTH EYES ×2 (08:36→20:56)
[2024-06-01] MEDS: ALPHAGAN P 0.15% EYE DROPS 1 DROP BOTH EYES ×3 (09:05→22:32)
[2024-06-01] MEDS: ROXICODONE 10 MG PO ×3 (09:07→22:42)
--- NOTE | 2024-06-01 09:47 | CM ---
Addendum entered by Anita Harkins 06/01/24 15:22:
Patient accepted for transfer to [facility] tomorrow, Per admissions Liaison. IMM completed and signed form placed on chart. CM will continue to follow for discharge planning needs.
Original Note:
Patient seen at bedside with physician. Patient confirmed he wanted to go to [facility] and if no availability would accept referral to [facility]. CM will continue to follow for discharge planning needs.
PLAN; pending bed availability [facility] vs referral to [facility]
--- NOTE | 2024-06-01 10:10 | W.PN.HOSP.TC ---
Today's Communication/Plan
-
ready for d/c pending discharge destination
Assessment / Plan
Assessment / Plan
pt is an 83 year old male
Fall at Home--likely Mechanism of fall likely related to ETOH (level 207 on admit) with Right Femur Fracture--s/p OR 05/30/24--WBAT--PT/OT--d/c planning--likely SNF but family wants [facility]?--DVT ppx 28 days Lovenox renally dosed--outpt follow up 2-3
weeks staple removal
Alcohol Use Disorder and Seizure Disorder--unclear if related--cont keppra (Patient states that he has been on Keppra since seizures 8-10 years ago - none since that time)--MSAS protocol, thiamine, folate--NEEDS TO QUIT
Leukocytosis--likely reactive--follow--hold ABX
anemia--likely chronic disease on acute blood loss anemia from long bone fracture and dilutional--iron studies show chronic disease
Mild Hypocalcemia--repleted with short course oral Calcium
Glaucoma- Stable. Continue current eye drop regimen.
DVT Prophylaxis: Lovenox
Code Status: Full
Anticipated Discharge: Within 24 hours
Subjective/Interval History
-
Date of Service: June 01, 2024
pt sitting in the chair--ready for d/c
Objective Data
-
Labs:
Laboratory Results
06/01/24
04:32
WBC 11.6 H
Hgb 9.9 L
Hct 30.0 L
Plt Count 148
Sodium 137
Potassium 3.9
Chloride 104
Carbon Dioxide 27
BUN 15
Creatinine 0.6 L
Glucose 104 H
Calcium 8.0 L
Total Bilirubin 1.6 H
AST 17
ALT 12
Alkaline Phosphatase 57
Vital Signs:
max temp fo 24 hours
05/31/24
15:57
Temp 99.8 F
Vital Signs
Temp Pulse Resp BP Pulse Ox
98.4 F 96 16 106/71 96
06/01/24 07:05 06/01/24 07:05 06/01/24 07:05 06/01/24 07:05 06/01/24 08:00
I&O
05/31/24 06/01/24 06/02/24
06:59 06:59 06:59
Intake Total 1940 / 1940 1200 / 1200
Output Total 800 / 800 1150 / 1150
Balance 1140 / 1140 50 / 50
Review of Systems
-
All other systems: Reviewed and negative
Physical Exam
-
General: Well Developed, Well Nourished and No Apparent Distress
HEENT: Normocephalic and Atraumatic
Respiratory: Clear to Auscultation; Negative Wheezes or Rhonchi
Cardiac: Regular Rhythm and S1/S2; Negative Murmur
GI: Soft, Nontender, Nondistended and Normal Bowel Sounds
Musculoskeletal: No Clubbing, No Cyanosis and No Edema
Skin: Warm and Dry
Neuro: Awake and Alert
[2024-06-01 14:31] VITALS: BP 139/72; PULSE 84
[2024-06-01 14:32] VITALS: BP 139/72; PULSE 84
[2024-06-01 16:06] VITALS: BP 127/75
[2024-06-01] MEDS: SENOKOT 17.2 MG PO (22:31)
[2024-06-01] MEDS: ISOPTO CARPINE 2% EYE DROPS 1 DROP OPHTH (22:33)
[2024-06-01] MEDS: XALATAN OPHTHALMIC SOLUTION 1 DROP OPHTH (22:35)
[2024-06-01 22:45] VITALS: BP 125/65
--- NOTE | 2024-06-02 02:42 | PTCARENOTE ---
Swelling noted in pt Right knee and increased pain. Right popliteal pulse and dorsalis pedis pulse normal. Swelling marked with skin marker and BENCH LAY OUT TECHNICIAN notified. BENCH LAY OUT TECHNICIAN at bedside. Advised pt to ice and given pain medication. Pt told this RN and BENCH LAY OUT TECHNICIAN that this
happened to him before on his left knee when he got his Left hip surgery r/t lymes disease. Will continue to monitor.
[2024-06-02] MEDS: ROXICODONE 10 MG PO ×4 (02:46→16:52)
--- NOTE | 2024-06-02 04:02 | W.PN.UPDATE ---
Update Note
Progress Note Update
RN notified BODY LINER. patient with Right knee swelling and pain. Patient seen and evaluated. Swelling noted above the knee cap, tender to touch, no warmth or redness noted. Patient states he had similar problem two years ago when he had surgery on Right
leg and was told its due to hx of lyme disease that his knees swells up. advise RN to place ice and administer pain medication. no signs of DVT or hematoma noted. Right above knee swelling likely due to bursitis or joint effusion. Will do Xray in AM.
[2024-06-02 07:02] LABS: Hematocrit 30.5 % (39.0-52.0); Mean Corp Hgb Conc. 32.8 g/dL (33.0-37.0); Mean Corpuscular Hgb 32.2 pg (27.0-31.0); Mean Corpuscular Volume 98.1 fL (80.0-94.0); Mean Platelet Volume 11.4 fL (7.4-10.4); Platelet Count 155 10^3/uL (130-400); Red Blood Cell Count 3.11 10^6/uL (4.70-6.10); White Blood Cell Count 12.6 10^3/uL (4.8-10.8)
[2024-06-02 07:14] LABS: Blood Urea Nitrogen 14 mg/dl (9-20); Calcium 7.9 mg/dl (8.4-10.2); Carbon Dioxide 28 mmol/L (22-30); Chloride 99 mmol/L (98-107); Estimated Creatinine Clearance 83 ml/min; Glucose 107 mg/dl (70-99); Phosphorus 2.9 mg/dl (2.5-4.5); Potassium 3.9 mmol/L (3.5-5.1); Sodium 137 mmol/L (135-145); eGFR > 60.00
[2024-06-02] MEDS: LOVENOX 40 MG SC (07:42)
[2024-06-02] MEDS: PROTONIX 40 MG PO (07:43)
[2024-06-02] MEDS: KEPPRA 500 MG PO ×2 (07:43→20:02)
[2024-06-02] MEDS: VITAMIN B1 100 MG PO ×2 (07:43→20:02)
[2024-06-02] MEDS: FOLVITE 1 MG PO (07:43)
[2024-06-02] MEDS: ISOPTO CARPINE 2% EYE DROPS 1 DROP OPHTH ×3 (07:44→20:02)
[2024-06-02] MEDS: PILOCARPINE 4% 1 DROP BOTH EYES ×3 (07:44→20:02)
[2024-06-02] MEDS: COLACE 100 MG PO ×2 (07:45→20:02)
[2024-06-02 08:03] VITALS: BP 163/81
[2024-06-02] MEDS: ALPHAGAN P 0.15% EYE DROPS 1 DROP BOTH EYES ×3 (09:04→20:13)
[2024-06-02] MEDS: COSOPT EYE DROPS 1 DROP BOTH EYES ×2 (09:04→20:13)
[2024-06-02] MEDS: DILAUDID 0.5 MG IV (09:52)
--- NOTE | 2024-06-02 10:42 | CM ---
Patient out of room to CT scan. Plan is for transfer to [facility] today, pending results from CT scan and bowel regime. updated [facility] and continue to follow for discharge planning needs.
Plan; [facility] pending medical treatment plan
--- NOTE | 2024-06-02 10:58 | PN.CDI ---
CDI
- -
CDI:
Physician Documentation Request
Admit Date: 05/29/24 20:24
Dear Doctor Robin,
Patient admitted with right femur fracture s/p right cephalomedullary nail fixation.
ED note, 'Patient states that he was drinking today. Patient states he just lost his balance and fell.'
08/17/09 Bone Densitometry, 'IMPRESSION: Osteoporosis in the femoral neck.'
Please clarify in your note the likely etiology/ etiologies of the right femur fracture:
Multifactorial due to low level fall, ETOH and osteoporosis
Low level fall and ETOH only
Other
Use of terms such as suspected, likely, concern for, or probable (associated with a specific diagnosis that is being evaluated, monitored, or treated as if it exists) are acceptable and can be coded in the inpatient setting, when documented at the
time of discharge.
Thank you,
Maria De Jesus RENEE,RN,CCDS
CDI Specialist
Available via [facility] text
Please use your independent medical judgment in providing your response.
--- NOTE | 2024-06-02 12:05 | W.PN.HOSP.TC ---
Today's Communication/Plan
-
for [facility] when cleared by ortho
Assessment / Plan
Assessment / Plan
pt is an 83 year old male
Fall at Home--likely Mechanism of fall likely related to ETOH (level 207 on admit), osteoporosis, and low level fall with Right Femur Fracture--s/p OR 05/30/24--WBAT--PT/OT--d/c planning--likely SNF but family wants [facility]?--DVT ppx 28 days Lovenox
renally dosed--outpt follow up 2-3 weeks staple removal
right knee swelling--CT scan with suprapatellar effusion, neg for quad tear
constipation--milk and molasses enema
Alcohol Use Disorder and Seizure Disorder--unclear if related--cont keppra (Patient states that he has been on Keppra since seizures 8-10 years ago - none since that time)--MSAS protocol, thiamine, folate--NEEDS TO QUIT
Leukocytosis--likely reactive--follow--hold ABX
anemia--likely chronic disease on acute blood loss anemia from long bone fracture and dilutional--iron studies show chronic disease
Mild Hypocalcemia--repleted with short course oral Calcium
Glaucoma- Stable. Continue current eye drop regimen.
DVT Prophylaxis: Lovenox
Code Status: Full
Anticipated Discharge: Within 24 hours
Subjective/Interval History
-
Date of Service: June 02, 2024
pt c/o swollen right knee--he attributes it to recurrent lyme
Objective Data
-
Labs:
Laboratory Results
06/02/24
04:53
WBC 12.6 H
Hgb 10.0 L
Hct 30.5 L
Plt Count 155
Sodium 137
Potassium 3.9
Chloride 99
Carbon Dioxide 28
BUN 14
Creatinine 0.6 L
Glucose 107 H
Calcium 7.9 L
Vital Signs:
max temp for 24 hours
06/01/24
22:45
Temp 99.5 F
Vital Signs
Temp Pulse Resp BP Pulse Ox
99.2 F 83 18 163/81 96
06/02/24 08:03 06/02/24 08:03 06/02/24 08:03 06/02/24 08:03 06/02/24 08:03
I&O
06/01/24 06/02/24 06/03/24
06:59 06:59 06:59
Intake Total 1200 / 1200 480 / 480
Output Total 1150 / 1150 250 / 250
Balance 50 / 50 230 / 230
Review of Systems
-
All other systems: Reviewed and negative
Musculoskeletal: Reports Other (right knee pain and swelling)
Physical Exam
-
General: Well Developed, Well Nourished and No Apparent Distress
HEENT: Normocephalic and Atraumatic
Respiratory: Clear to Auscultation; Negative Wheezes or Rhonchi
Cardiac: Regular Rhythm and S1/S2; Negative Murmur
GI: Soft, Nontender, Nondistended and Normal Bowel Sounds
Musculoskeletal: No Clubbing, No Cyanosis and Other (right knee with fluid noted--not hot, not red)
Skin: Warm
Neuro: Awake and Alert
[2024-06-02 15:00] VITALS: BP 114/74
[2024-06-02] MEDS: XALATAN OPHTHALMIC SOLUTION 1 DROP OPHTH (20:13)
[2024-06-02] MEDS: SENOKOT 17.2 MG PO (21:04)
[2024-06-02 23:44] VITALS: BP 133/69
[2024-06-03] MEDS: ROXICODONE 10 MG PO ×4 (01:32→13:57)
[2024-06-03 05:52] LABS: Hematocrit 28.9 % (39.0-52.0); Hemoglobin 9.6 g/dL (13.0-18.0); Mean Corp Hgb Conc. 33.2 g/dL (33.0-37.0); Mean Corpuscular Hgb 32.1 pg (27.0-31.0); Mean Corpuscular Volume 96.7 fL (80.0-94.0); Mean Platelet Volume 11.1 fL (7.4-10.4); Platelet Count 160 10^3/uL (130-400); Red Blood Cell Count 2.99 10^6/uL (4.70-6.10); Red Cell Dist. Width 14.8 % (11.5-14.5); White Blood Cell Count 10.3 10^3/uL (4.8-10.8)
[2024-06-03 06:33] LABS: Blood Urea Nitrogen 14 mg/dl (9-20); Calcium 7.8 mg/dl (8.4-10.2); Carbon Dioxide 28 mmol/L (22-30); Chloride 99 mmol/L (98-107); Estimated Creatinine Clearance 83 ml/min; Glucose 96 mg/dl (70-99); Magnesium 2.1 mg/dl (1.6-2.3); Phosphorus 3.5 mg/dl (2.5-4.5); Potassium 4.1 mmol/L (3.5-5.1); Sodium 134 mmol/L (135-145); eGFR > 60.00
[2024-06-03 07:10] VITALS: BP 136/71
--- NOTE | 2024-06-03 07:41 | W.PN.UPDATE ---
Update Note
Progress Note Update
pt seen and chart reviewed
Acute right knee swelling
Knee aspirated for approximately 30 cc of somewhat cloudy yellow fluid
Does have a history of Lyme disease as well with recurrent knee swelling
Will send off fluid for appropriate studies and follow-up
Thanks
IAM ANNA
[2024-06-03] MEDS: FOLVITE 1 MG PO (08:29)
[2024-06-03] MEDS: ALPHAGAN P 0.15% EYE DROPS 1 DROP BOTH EYES (08:29)
[2024-06-03] MEDS: PROTONIX 40 MG PO (08:29)
[2024-06-03] MEDS: COLACE 100 MG PO (08:29)
[2024-06-03] MEDS: VITAMIN B1 100 MG PO (08:29)
[2024-06-03] MEDS: KEPPRA 500 MG PO (08:29)
[2024-06-03] MEDS: COSOPT EYE DROPS 1 DROP BOTH EYES (08:29)
[2024-06-03] MEDS: LOVENOX 40 MG SC (08:29)
[2024-06-03] MEDS: ISOPTO CARPINE 2% EYE DROPS 1 DROP OPHTH (08:30)
[2024-06-03] MEDS: PILOCARPINE 4% 1 DROP BOTH EYES (08:30)
[2024-06-03 08:32] LABS: Body Fluid Polymorphonuclear 94.6 %; Body Fluid WBC 15535 /CUMM
[2024-06-03] MEDS: TYLENOL 650 MG PO (08:32)
[2024-06-03 08:52] LABS: Body Fluid Mononuclear 5.4 %; Body Fluid Second Tech AMA
--- NOTE | 2024-06-03 10:47 | W.PN.HOSP.TC ---
Today's Communication/Plan
-
plan would be for [facility] if cleared by ortho
Assessment / Plan
Assessment / Plan
pt is an 83 year old male
Fall at Home--likely Mechanism of fall likely related to ETOH (level 207 on admit), osteoporosis, and low level fall with Right Femur Fracture--s/p OR 05/30/24--WBAT--PT/OT--d/c planning---DVT ppx 28 days Lovenox renally dosed--outpt follow up 2-3
weeks staple removal
right knee swelling--CT scan with suprapatellar effusion, neg for quad tear
constipation--milk and molasses enema minimally successful--add mag citrate
Alcohol Use Disorder and Seizure Disorder--unclear if related--cont keppra (Patient states that he has been on Keppra since seizures 8-10 years ago - none since that time)--MSAS protocol, thiamine, folate--NEEDS TO QUIT
Leukocytosis--likely reactive--follow--hold ABX
anemia--likely chronic disease on acute blood loss anemia from long bone fracture and dilutional--iron studies show chronic disease
Mild Hypocalcemia--repleted with short course oral Calcium
Glaucoma- Stable. Continue current eye drop regimen.
DVT Prophylaxis: Lovenox
Code Status: Full
Anticipated Discharge: Today
Subjective/Interval History
-
Date of Service: June 03, 2024
pt had 30 mls of cloudy yellow fluid drained today
Objective Data
-
Labs:
Laboratory Results
06/03/24
04:29
WBC 10.3
Hgb 9.6 L
Hct 28.9 L
Plt Count 160
Sodium 134 L
Potassium 4.1
Chloride 99
Carbon Dioxide 28
BUN 14
Creatinine 0.6 L
Glucose 96
Calcium 7.8 L
Vital Signs:
max temp for 24 hours
06/01/24
22:45
Temp 99.5 F
Vital Signs
Temp Pulse Resp BP Pulse Ox
98.9 F 78 16 136/71 94
06/03/24 07:10 06/03/24 07:10 06/03/24 07:10 06/03/24 07:10 06/03/24 07:10
I&O
06/02/24 06/03/24 06/04/24
06:59 06:59 06:59
Intake Total 480 / 480 1200 / 1200
Output Total 250 / 250 925 / 925
Balance 230 / 230 275 / 275
Review of Systems
-
All other systems: Reviewed and negative
Musculoskeletal: Reports Joint Pain (knee pain)
Physical Exam
-
General: Well Developed, Well Nourished and No Apparent Distress
HEENT: Normocephalic and Atraumatic
Respiratory: Clear to Auscultation; Negative Wheezes or Rhonchi
Cardiac: Regular Rhythm and S1/S2; Negative Murmur
GI: Soft, Nontender, Nondistended and Normal Bowel Sounds
Musculoskeletal: No Clubbing, No Cyanosis and Other (right knee still swollen); Negative No Edema
Neuro: Awake
Psych: Calm
[2024-06-03 10:53] VITALS: BP 141/69; PULSE 72
[2024-06-03] MEDS: CITROMA 150 ML PO (11:42)
[2024-06-03 12:15] VITALS: BP 140/81; PULSE 80; O2SAT 95
--- NOTE | 2024-06-03 12:52 | CM ---
transfer to [facility] today. Patient completed IMM and signed form placed on chart. CM will call to Patient daughter to confirm. CM will continue to follow for discharge planning needs.
Plan; transfer to [facility]
--- NOTE | 2024-06-03 13:16 | W.PN.UPDATE ---
Update Note
Progress Note Update
Prelim aspirate reviewed
No def signs of infection or crystals
Will continue to follow
Would observe condition at this time
GGMD
[2024-06-03 14:03] VITALS: BP 137/93
--- NOTE | 2024-06-04 15:26 | W.DCSUMMARY ---
Discharge Summary
Discharge Data
Date of Admission: 05/29/24
Date of Discharge: 06/03/24
Total time spent discharging patient (in min): 34
-
Pending Results: Yes
Additional Pending Results:
culture from knee aspiration
Hospital Course
Primary care physician : not listed
Principal Discharge diagnosis : Fall at home, right knee swelling, constipation
Chronic Discharge diagnosis : Alcohol use disorder, seizure disorder, leukocytosis, anemia, mild hypocalcemia, glaucoma
Hospital Course : Patient was an 83-year-old male with a history of alcohol use disorder and prior seizure history who presented complaining of right hip pain after a fall. Patient was unable to recall the specifics of the fall. He found himself
on the floor, unable to stand and pain in the right hip. EMS was called and the patient was brought in for evaluation and treatment. He was found to have a right hip fracture. Patient admitted to daily alcohol use typically 3-4 vodka drinks per
day. On the day of admission he has had 2 drinks so far. Patient was admitted.
Problem #1: Fall at home. Mechanism of injury is unclear but likely related to alcohol use, osteoporosis, and a low level fall with a right femur fracture. Patient was seen in consultation by orthopedics and went to the operating room on May
2023. He had open reduction internal fixation. Patient is supposed to be weightbearing as tolerated. Physical therapy and Occupational Therapy did see the patient and he has been accepted to [facility]. For DVT prophylaxis, orthopedics wants
Lovenox daily for 28 days renally dosed. He should have an outpatient follow-up in 2 to 3 weeks with orthopedics for staple removal.
Problem #2: Right knee swelling. Patient states that he has a history of Lyme disease and every time he has a procedure his knee gets swollen. He was complaining of pain. X-ray was concerning for the possibility of a quadricep tear. CAT scan of
his knee was done which did not show any tears but did show a suprapatellar effusion. Orthopedics did aspirate and took 30 cc of cloudy fluid out with 15,000 white cells. This is not high enough to be infectious. Nevertheless, cultures were
obtained. They are pending at this time.
Problem #3: Constipation. This is likely due to combination of narcotic pain medications as well as limited mobility. He was given bowel regimen and milk of molasses enema with good results.
Problem #4: All of the medical issues. These include Alcohol use disorder, seizure disorder, leukocytosis, anemia, mild hypocalcemia, glaucoma. These medical issues were stable during his hospitalization. Medications were continued as able.
There were no signs of any alcohol withdrawal symptoms.
Patient is stable for discharge to [facility] at this time. If there are any questions regarding this dictation or his hospital stay, please not hesitate to call. Our office number is [phone].
Time for discharge 34 minutes.
Discharge Plan
-
Patient Disposition: Acute Rehab Facility
Discharge Diagnosis/Procedures: Fall at home likely mechanical related to alcohol, alcohol use disorder and seizure disorder, leukocytosis, anemia likely of chronic disease and acute blood loss anemia from long bone fracture as well as IV fluid
dilutional, mild hypocalcemic, glaucoma
Condition: Good
Diet: As tolerated and Regular
Additional Diets: Need to quit alcohol
Activity: As tolerated
Driving Restrictions: Not until seen by your Dr
Bathing Restrictions: None
Referrals:
Darius Reynoso MD [Family Provider] - in less than 1 week
Prescriptions:
New
enoxaparin 40 mg/0.4 mL Syringe
40 mg SC DAILY 28 Days Qty: 11.2 0RF
Rx Instructions:
for 28 days
latanoprost 0.005 % Drops
1 drp ophthalmic (eye) HS Qty: 2.5 0RF
alum-mag hydroxide-simeth [Mag-Al Plus] 200-200-20 mg/5 mL Suspension
30 ml PO Q4HPRN PRN (Reason: indigestion) Qty: 0 0RF
pilocarpine HCl 2 % Drops
1 drp ophthalmic (eye) TID Qty: 15 0RF
oxycodone 5 mg Tablet
5 mg PO Q4HPRN PRN (Reason: mild pain) Qty: 0 0RF
oxycodone 10 mg Tablet
10 mg PO Q4HPRN PRN (Reason: moderate pain) Qty: 0 0RF
polyethylene glycol 3350 17 gram Powder In Packet
17 g PO DAILY Qty: 0 0RF
sennosides [Senna Laxative] 8.6 mg Tablet
17.2 mg PO HS Qty: 0 0RF
Continued
dorzolamide-timolol 1 DROP drops
1 drp BOTH EYES BID
brimonidine [Alphagan P] 1 DROP drops
1 drp BOTH EYES TID
acetaminophen 325 mg Tablet
650 mg PO Q4HPRN PRN (Reason: mild pain) Qty: 0 0RF
docusate sodium 100 mg Capsule
100 mg PO BID Qty: 0 0RF
folic acid 1 mg Tablet
1 mg PO DAILY Qty: 30 0RF
thiamine HCl (vitamin B1) 100 mg Tablet
100 mg PO BID Qty: 60 0RF
pantoprazole 40 mg Tablet,Delayed Release (Dr/Ec)
40 mg PO DAILY Qty: 30 0RF
cyanocobalamin (vitamin B-12) 1,000 mcg Tablet
1,000 mcg PO DAILY Qty: 30 0RF
levetiracetam 500 MG tablet
500 mg PO BID Qty: 30 0RF
Discontinued
pilocarpine HCl 4 % drops
2 drp BOTH EYES TID
pilocarpine HCl 2 % drops
3 drp BOTH EYES TID
Discharge Orders:
Discharge Patient (As Directed); Ordered 06/03/24
Ordered By: Roya Kelly
Discharge Date and Time
Discharge Date/Time: 06/03/24 15:08
Print Language: PALAUAN
== END 2024-06-03 15:08 | DRG 481 ==
LOC: 2 SOUTH 20:24
PROVIDERS: Internal Medicine; Student in an Organized Health Care Education/Training Program; ADMITTING PHYSICIAN Hospitalist; ATTENDING PHYSICIAN Internal Medicine; CONSULT PHYSICIAN Orthopaedic Surgery; EMERGENCY PHYSICIAN Emergency Medicine; FAMILY PHYSICIAN Family Medicine; OTHER PHYSICIAN Orthopaedic Surgery Hand Surgery
PROC: 0QSB06Z Reposition Right Lower Femur with Intramedullary Internal Fixation Device, Open Approach (ICD-10-PCS; 2024-05-30)
DX: M80.851A Other osteoporosis with current pathological fracture, right femur, initial encounter for fracture (principal); D62 Acute posthemorrhagic anemia; K59.00 Constipation, unspecified; W01.0XXA Fall on same level from slipping, tripping and stumbling without subsequent striking against object, initial encounter; Y92.009 Unspecified place in unspecified non-institutional (private) residence as the place of occurrence of the external cause; M25.461 Effusion, right knee; F10.10 Alcohol abuse, uncomplicated; E83.51 Hypocalcemia
CPT/HCPCS: 73502; 73552; 73560; 73700; 76000; 80048; 80053; 80177; 81003; 82077; 82248; 82607; 82728; 82746; 83540; 83550; 83735; 84100; 85025; 85027; 85610; 85730; 87015; 87070; 87075; 87205; 89051; 89060; 93005; 96374; 97110; 97163; 97167; 97530; 97535; 99285; C1713